=== PATIENT | male | born 1950 | race Two or more races ===

== ENCOUNTER 2018-12-02 18:15 | Inpatient (IN) | payer OTHER ==
--- NOTE | 2018-12-02 19:28 | PDOC ---
History of Present Illness - General Chief Complaint: Wound Stated Complaint: Abscess, infected rt arm Time Seen by Provider: 12/02/18 19:15 History Source: Patient Exam Limitations: No Limitations - History of Present Illness Initial Comments: 12/02/18 20:34 Anand Maravilla is a 68yM w PMHx DM HTN CHF presenting with R arm wound. 5d ago hit R antecubital fossa w ladder. Since then has worsening lump on R arm w purulence, warmth, swelling. Associated fever, diaphoresis, headache not relieved w tylenol/ibuprofen. Did not take any tylenol/ibuprofen today. Earlier today went to [facility], was given fluids, no antibiotics, left d/t dissatisfaction w care. Denies chest pain, SOB, nausea/vomiting, urinary/bowel movement changes. Past History - Past Medical History Allergies/Adverse Reactions: Allergies Allergy/AdvReac Type Severity Reaction Status Date / Time Penicillins Allergy Verified 12/02/18 18:23 shellfish derived Allergy Verified 12/02/18 18:23 tomato Allergy Verified 12/02/18 18:23 Home Medications: Ambulatory Orders Acetaminophen [Tylenol] 650 mg PO PRN PRN 12/02/18 Amlodipine Besylate [Norvasc -] 5 mg PO DAILY 12/02/18 Aspirin [ASA -] 81 mg PO DAILY 12/02/18 Furosemide [Lasix] 40 mg PO DAILY 12/02/18 Ibuprofen [Ibu] 800 mg PO PRN PRN 12/02/18 Insulin Glargine,Hum.rec.anlog [Lantus] 15 unit SQ HS 12/02/18 Metformin HCl [Glucophage] 500 mg PO BID 12/02/18 Sulfamethoxazole/Trimethoprim [Sulfamethoxazole-Tmp Ds Tablet] 1 each PO BID 09/13 Anemia: No Asthma: No Cancer: No Cardiac Disorders: Yes (CABG - 2 STENTS) CVA: No COPD: Yes (as per patient information) CHF: No Dementia: No Diabetes: Yes GI Disorders: No Disorders: No HTN: Yes (As per patient - need medication list, reports, etc. ) Liver Disease: No Seizures: No Thyroid Disease: No - Psycho Social/Smoking Cessation Hx Smoking History: Current every day smoker Number of Cigarettes Smoked Daily: 10 Information on smoking cessation initiated: Yes Hx Alcohol Use: No Drug/Substance Use Hx: No Review of Systems - Review of Systems Constitutional: Yes: Fever. No: Chills HEENTM: No: Eye Pain, Nose Pain, Throat Pain, Mouth Pain Respiratory: No: Cough, Shortness of Breath Cardiac (ROS): No: Chest Pain, Palpitations, Syncope ABD/GI: No: Abdominal Distended, Constipated, Diarrhea, Nausea, Vomiting : No: Burning, Dysuria, Discharge, Frequency, Flank Pain, Hematuria Musculoskeletal: No: Back Pain, Joint Pain, Joint Swelling, Muscle Pain Integumentary: No: Bruising, Dryness Neurological: Yes: Headache. No: Seizure, Tingling Psychiatric: No: Anxiety, Depression, Stressors Endocrine: Yes: Excessive Sweating. No: Flushing, Intolerance to Cold, Intolerance to Heat Hematologic/Lymphatic: No: Anemia, Blood Clots *Physical Exam - Vital Signs Last Vital Signs Temp Pulse Resp BP Pulse Ox 98 F 92 H 17 147/72 97 12/02/18 18:21 12/02/18 18:21 12/02/18 18:21 12/02/18 18:21 12/02/18 18:21 - Physical Exam General Appearance: Yes: Nourished, Appropriately Dressed, Moderate Distress HEENT: positive: EOMI, CHRISSY, Normal Voice, Hearing Grossly Normal. negative: Scleral Icterus (R), Scleral Icterus (L), Nasal Congestion, Rhinorrhea Respiratory/Chest: positive: Lungs Clear, Normal Breath Sounds. negative: Chest Tender, Respiratory Distress Cardiovascular: positive: Regular Rhythm, Regular Rate, S1, S2. negative: Edema , Murmur Extremity: positive: Other (5cm tender/erythematous/warm/fluctuant mass over R antecubital fossa w active yellow purulent discharge. Erythema spreads to wrist. Normal arm distal pulses/sensation/strength/ROM ) Neurologic: positive: Fully Oriented, Alert, Respond to painful stimul, Responsive. negative: Motor Strength 5/5, Numbness, Confused, Disoriented ED Treatment Course - LABORATORY CBC & Chemistry Diagram: 12/02/18 21:30 12/02/18 21:30 Medical Decision Making - Medical Decision Making 12/02/18 19:28 19:25 could not find pt in ED. Found pt at 20:00 CBC, CMP, POC glucose, blood/wound cx, coags 0.5L NS, tylenol, reglan for pain, vanc/clindamycin (penicillin allergy) for purulent abscess R forearm XR did not show fracture/dislocation/osteonecrosis BG 487 - given 6u insulin EKG shows NSR, RBBB, HR 78, QTc 433 --- Anand Maravilla is a 68yM w PMHx DM HTN CHF presenting with 5d worsening R arm wound concerning for abscess and cellulitis (5cm fluctuant mass w spreading erythema, edema, warmth). R forearm XR did not show fracture/dislocation/ osteonecrosis. Did not drain abscess d/t concern for tracking infection not completely cleared with I&D and pmhx DM. Given 0.5L NS, tylenol, reglan for pain , vanc/clindamycin for infection, 6u insulin for high BG Admitted to Dr Mccray med/surg for abscess needing IV antibiotics and drainage in setting of poorly controlled DM, large spreading infection Discharge - Discharge Information Problems reviewed: Yes Clinical Impression/Diagnosis: Abscess, Hyperglycemia Cellulitis Qualifiers: Site of cellulitis: extremity Site of cellulitis of extremity: lower extremity Laterality: right Qualified Code(s): L03.115 - Cellulitis of right lower limb Condition: Stable - Follow up/Referral - Patient Discharge Instructions - Post Discharge Activity
[2018-12-02] MEDS ORDERED: ACETAMINOPHEN 1000 MG/100 ML VIAL (NON FORMULARY) IVPB ONE (20:17)
[2018-12-02] MEDS ORDERED: METOCLOPRAMIDE HCL INJECTION 10 MG/2 ML VIAL IVPB ONE (20:18)
[2018-12-02] MEDS ORDERED: SODIUM CHLORIDE 0.9% 500 ML INFUS.BAG IV ONE (20:22)
[2018-12-02] MEDS ORDERED: ACETAMINOPHEN INJECTION 100 ML IVPB ONE (20:39)
[2018-12-02] MEDS ORDERED: METOCLOPRAMIDE HCL INJECTION 10 MG/2 ML VIAL ONE (20:39)
[2018-12-02] MEDS ORDERED: VANCOMYCIN 1 GM PREMIX - 1 GM/200 ML BAG IVPB ONE (21:15)
[2018-12-02] MEDS ORDERED: CLINDAMYCIN 600MG PREMIX IVPB 600 MG/50 ML BAG IVPB ONE ×2 (21:45→22:27)
--- NOTE | 2018-12-02 21:47 | PDOC ---
Documentation entered by Berkley Huff SCRIBE, acting as scribe for Oriana Brown MD. Oriana Brown MD: This documentation has been prepared by the Refugio patel Brenda, SCRIBE, under my direction and personally reviewed by me in its entirety. I confirm that the documentation accurately reflects all work, treatment, procedures, and medical decision making performed by me. Attending Attestation - Resident Resident Name: EvaMisael - ED Attending Attestation I have performed the following: I have examined & evaluated the patient, The case was reviewed & discussed with the resident, I agree w/resident's findings & plan, Exceptions are as noted - HPI HPI: 12/02/18 21:15 The patient is a 68 year old male, with a significant PMH of IDDM, HTN, CHF, who presents to the emergency department with a right forearm arm wound. He notes hitting his right interior elbow (antecubital fossa) with a ladder on Sunday (11/27/18). He notes that since then, he has had this worsening lump on right arm accompanied by purulence, warmth and edema, The patient also endorses fever, and a headache which is not alleviated with tyelenol. The patient denies chest pain, shortness of breath, headache and dizziness. Denies nausea, vomiting, diarrhea and constipation. Denies dysuria, frequency, urgency and hematuria. Allergies: NKA Past surgical history: CABG Social history: Polysubstance abuse (Heroin, cocaine) PCP: [facility] Patient - Physicial Exam PE: 12/02/18 21:16 GENERAL: Well-appearing, well-nourished. No apparent distress. HEENT: Normocephalic, atraumatic. PERRL, EOM intact. CARDIOVASCULAR: Normal S1, S2. Regular rate and rhythm. PULMONARY: Clear to auscultation bilaterally. ABDOMEN: Soft, non-distended, non-tender. EXTREMITIES: (+) 8 cm. by 6 cm. abscess on right anticubital fossa. (+) Old, well healed path davison (heroine) Sensation in tact in right arm. Normal ROM in all four extremities. No gross deformities. SKIN: Warm, dry. No rash NEUROLOGICAL: No focal neurological deficits. - Medical Decision Making 12/02/18 21:44 pt needs admission for IV antibiotics IMP ABSCESS/L forearm Cellulitis,IDDM
[2018-12-02 21:59] LABS: BASO % 0.5 % (0-2.0); EOS % 1.4 % (0-4.5); HEMATOCRIT 38.2 % (35.4-49); HEMOGLOBIN 12.6 GM/dL (11.7-16.9); LYMPH % 15.5 % (8-40); MCH 29.6 pg (25.7-33.7); MCHC 32.8 g/dl (32.0-35.9); MEAN CELL VOLUME 90.1 fl (80-96); MEAN PLT VOLUME 9.5 fl (7.5-11.1); MONO % 11.6 % (3.8-10.2); PLATELET COUNT 222 K/MM3 (134-434); RBC 4.24 M/mm3 (4.00-5.60); RDW 13.8 % (11.9-15.9); WHITE BLOOD COUNT 7.1 K/mm3 (4.0-10.0)
[2018-12-02 22:18] LABS: INR 0.91 (0.83-1.09); PROTHROMBIN TIME (PATIENT) 10.7 SEC (9.7-13.0)
[2018-12-02] MEDS ORDERED: VANCOMYCIN 1 GRAM (PRE-DOCKED) 1,000 MG/250 ML BAG IVPB ONE (22:26)
[2018-12-02 22:29] LABS: ALBUMIN 3.1 g/dl (3.4-5.0); BILIRUBIN,TOTAL 0.3 mg/dL (0.2-1); BLOOD UREA NITROGEN 7.6 mg/dL (7-18); CALCIUM 8.8 mg/dL (8.5-10.1); POTASSIUM 4.4 mmol/L (3.5-5.1); TOT PROT 6.8 g/dl (6.4-8.2)
[2018-12-03] MEDS ORDERED: INSULIN REGULAR HUMAN 100 UNITS/ML *VIAL IVPUSH ONE (01:06)
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
--- NOTE | 2018-12-03 01:49 | PN ---
Teaching Attending Note Name of Resident: Nilsa Hinton ATTENDING PHYSICIAN STATEMENT I saw and evaluated the patient. I reviewed the resident's note and discussed the case with the resident. I agree with the resident's findings and plan as documented. SUBJECTIVE: 68yM w uncontrolled DM, HTN, CHF presented with worsening R arm wound concerning for abscess and cellulitis ( fluctuant mass w spreading erythema, edema, warmth). R forearm XR did not show fracture/dislocation/osteonecrosis. Right forearm u/s did not show drainable fluid collection. OBJECTIVE: Last Vital Signs Temp Pulse Resp BP Pulse Ox 98 F 92 H 17 147/72 97 12/02/18 18:21 12/02/18 18:21 12/02/18 18:21 12/02/18 18:21 12/02/18 18:21 gen -nontoxic heent - atraumatic neck supple cv-s1+s2+rrr ext- right arm erthema, tenderness to palpation Abnormal Lab Results 12/02/18 12/02/18 12/02/18 21:30 21:30 21:30 Monocytes % 11.6 H PTT (Actin FS) 23.7 L Sodium 124 L Chloride 89 L Random Glucose 487 H* Alkaline Phosphatase 135 H Albumin 3.1 L imaging reviewed ASSESSMENT AND PLAN: #Right arm carbuncle vs cellulitis. No drainable fluid collection on right upper ext u/s. Severe penicillin allergy -med/surg -obtain u/s of right upper extremity to evaluate for drainable fluid collection -blood cultures x2 -esr, crp -vancomcyin, aztreonam, metronidazole -id consult #Severe uncontrolled hyperglycemia -novolog sliding scale -basal insulin -a1c -lipid panel -IV fluid hydration #CHF - unknown baseline EF -echo #Pseudohyponatremia - corrected an -130 mEq/L -serum osm -urine osm -tsh -fall precautions #DVT ppx -heparin sc
[2018-12-03] MEDS ORDERED: SODIUM CHLORIDE 1,000 ML IV SCH ×3 (06:00→14:15)
[2018-12-03 06:43] LABS: HEMATOCRIT 38.1 % (35.4-49); HEMOGLOBIN 12.8 GM/dL (11.7-16.9); MCH 29.8 pg (25.7-33.7); MCHC 33.6 g/dl (32.0-35.9); MEAN CELL VOLUME 88.9 fl (80-96); MEAN PLT VOLUME 9.1 fl (7.5-11.1); PLATELET COUNT 234 K/MM3 (134-434); RBC 4.28 M/mm3 (4.00-5.60); RDW 13.8 % (11.9-15.9); WHITE BLOOD COUNT 5.2 K/mm3 (4.0-10.0)
[2018-12-03 07:00] LABS: BLOOD UREA NITROGEN 9.1 mg/dL (7-18); CALCIUM 8.7 mg/dL (8.5-10.1); CREATININE 0.6 mg/dL (0.55-1.3); POTASSIUM 3.9 mmol/L (3.5-5.1)
[2018-12-03] MEDS ORDERED: INSULIN SLIDING SCALE (NOVOLOG) 1 VIAL SQ SCH (07:00)
[2018-12-03] MEDS ORDERED: AZTREONAM 1 GM VIAL (RESTRICTED TO ID) IVPB SCH ×3 (10:00→22:50)
[2018-12-03] MEDS ORDERED: AZTREONAM 1 GM in DEXTROSE 5%-WATER - 50 ML IVPB SCH ×2 (10:00→22:00)
[2018-12-03] MEDS ORDERED: ENOXAPARIN NA (PORCINE) 40 MG/0.4 ML DISP.SYRIN SQ SCH (10:00)
[2018-12-03] MEDS ORDERED: VANCOMYCIN 1 GRAM (PRE-DOCKED) 1,000 MG/250 ML BAG IVPB SCH ×2 (10:00→22:00)
[2018-12-03] MEDS ORDERED: ASPIRIN 81 MG CHEWABLE TABLETS PO SCH (10:00)
[2018-12-03] MEDS ORDERED: VANCOMYCIN 1 GM in D5W (PRE-DOCKED) 1,000 MG/250 ML IVPB SCH ×2 (10:00→22:00)
[2018-12-03] MEDS ORDERED: amLODIPine BESYLATE 5 MG TABLET (FP) PO SCH (10:00)
--- NOTE | 2018-12-03 11:59 | ECHO ---
Version: 1 Name: ESME PEDERSEN Exam: Adult Echocardiogram Study Date: 12/03/2018, 9:46 AM Age: 68 Years MMode/2D Measurements & Calculations IVSd: 0.87 cm LVIDs: 2.8 cm LVIDd: 4.0 cm LVPWd: 1.29 cm Ao root diam: 3.2 cm LA dimension: 3.7 cm Doppler Measurements & Calculations MV E max joshua: 55.8 cm/sec Med E/e': 11.7 MV A max joshua: 103.7 cm/sec Med Peak E' Joshua: 4.8 cm/sec MV E/A: 0.54 Lat E/e': 8.1 Lat Peak E' Joshua: 6.9 cm/sec Ao max P.7 mmHg LV V1 mean: 76.8 cm/sec Ao mean P.6 mmHg LV V1 mean P.6 mmHg Ao V2 max: 128.0 cm/sec AI P1/2t: 460.6 msec TR max joshua: 228.0 cm/sec TR max P.8 mmHg Procedure Study Quality: Technically suboptimal. Left Ventricle The left ventricular size, thickness and function are normal. Ejection Fraction = 65%. The transmitr al spectral Doppler flow pattern is suggestive of impaired LV relaxation. Right Ventricle The right ventricle is normal in size and function. Atria Normal left and right atrial size and function. Mitral Valve There is mild mitral annular calcification. There is mild mitral regurgitation. Tricuspid Valve The tricuspid valve is normal. There is mild tricuspid regurgitation. Aortic Valve There is mild aortic valve thickening. Trace to mild aortic regurgitation. Pulmonic Valve The pulmonic valve is not well visualized. Great Vessels The aortic root is normal size. Normal aortic arch, descending and ascending aorta. Pericardium/Pleura There is no pericardial effusion. Tech Comments NO WINDOW FOR SHORT AXIS PATIENT NON COOPERATIVE. Summary Statements The left ventricular size, thickness and function are normal Ejection Fraction = 65%. The right ventricle is normal in size and function. Normal left and right atrial size and function. The transmitral spectral Doppler flow pattern is suggestive of impaired LV relaxation. There is mild mitral annular calcification. There is mild mitral regurgitation. The tricuspid valve is normal. There is mild tricuspid regurgitation. There is mild aortic valve thickening. Trace to mild aortic regurgitation. The pulmonic valve is not well visualized. The aortic root is normal size. Normal aortic arch, descending and ascending aorta There is no pericardial effusion. Sami Greenberg 12/03/2018, 10:58 AM Ordering Physician: ANTON BRYSON Referring Physician: ANTON BRYSON Performed By: Darlyn Montilla
--- NOTE | 2018-12-03 12:05 | EKG ---
Test Reason : Blood Pressure : / mmHG Vent. Rate : 078 BPM Atrial Rate : 078 BPM P-R Int : 176 ms QRS Dur : 120 ms QT Int : 380 ms P-R-T Axes : 067 049 023 degrees QTc Int : 433 ms NORMAL SINUS RHYTHM RIGHT BUNDLE BRANCH BLOCK ABNORMAL ECG WHEN COMPARED WITH ECG OF 10-AUG-2016 09:47, NO SIGNIFICANT CHANGE WAS FOUND Confirmed by Mick Garcia ([id number]) on 12/03/2018 12:05:29 PM Referred By: Confirmed By:Mick Garcia
--- NOTE | 2018-12-03 12:54 | CONSULT ---
- Consultation REQUESTING PROVIDER: CONSULT REQUEST: We have been asked to surgically evaluate this patient for Right arm abscess. PCP:TJ Reed HISTORY OF PRESENT ILLNESS: The patient is a 68 yo male who presented to the ER for evaluation of his Right arm draining wound. He original hurt himself when a ladder fell onto him. Last Sunday he went to [facility] and was admitted. He cant recall if he was treated with any IV abx while in the hospital and denies taking any oral antibiotics at home. He has complaints of fever/chills. No CP/ SOB today. PMHx: diabetes, HTN, high cholesterol, CAD PSHx: s/p CABG-5 years ago Home Medications Medication Instructions Recorded Acetaminophen [Tylenol] 650 mg PO PRN PRN 12/02/18 Amlodipine Besylate [Norvasc -] 5 mg PO DAILY 12/02/18 Aspirin [ASA -] 81 mg PO DAILY 12/02/18 Furosemide [Lasix] 40 mg PO DAILY 12/02/18 Ibuprofen [Ibu] 800 mg PO PRN PRN 12/02/18 Insulin Glargine,Hum.rec.anlog 15 unit SQ HS 12/02/18 [Lantus] Metformin HCl [Glucophage] 500 mg PO BID 12/02/18 Sulfamethoxazole/Trimethoprim 1 each PO BID 12/02/18 [Sulfamethoxazole-Tmp Ds Tablet] Allergies Allergy/AdvReac Type Severity Reaction Status Date / Time Penicillins Allergy Verified 12/02/18 18:23 shellfish derived Allergy Verified 12/02/18 18:23 tomato Allergy Verified 12/02/18 18:23 REVIEW OF SYSTEMS: CONSTITUTIONAL: Present: fever, chills CARDIOVASCULAR: Absent: chest pain, syncope, palpitations RESPIRATORY: Absent: cough, shortness of breath GASTROINTESTINAL: Absent: abdominal pain, abdominal distension, nausea, vomiting MUSCULOSKELETAL: Present: back pain NEUROLOGIC: Absent: headache, focal weakness, paresthesias PHYSICAL EXAM: GENERAL: Awake, alert, and fully oriented, in no acute distress. LUNGS: Clear to auscultation bilat anteriorly. HEART: Regular rate and rhythm. ABDOMEN: Soft, nontender, not distended, no guarding, no rebound, no masses. MUSCULOSKELETAL: Normal ROM at all joints. No bony deformities or tenderness. No CVA tenderness. UPPER EXTREMITIES: 2+ pulses, warm, well-perfused. Right arm with 4x4 cm draining/erythematous/fluctuant area in lateral antecubital region. LOWER EXTREMITIES: 2+ DP pulses, warm, well-perfused. No calf tenderness. No peripheral edema. PSYCH: Cooperative. Good eye contact. Appropriate mood and affect. Vital Signs Temperature 98.2 F 12/03/18 12:12 Pulse Rate 82 12/03/18 12:12 Respiratory Rate 18 12/03/18 12:12 Blood Pressure 139/85 12/03/18 12:12 O2 Sat by Pulse Oximetry (%) 97 12/03/18 12:12 Lab Results WBC 5.2 K/mm3 (4.0-10.0) 12/03/18 06:11 RBC 4.28 M/mm3 (4.00-5.60) 12/03/18 06:11 Hgb 12.8 GM/dL (11.7-16.9) 12/03/18 06:11 Hct 38.1 % (35.4-49) 12/03/18 06:11 MCV 88.9 fl (80-96) 12/03/18 06:11 MCHC 33.6 g/dl (32.0-35.9) 12/03/18 06:11 RDW 13.8 % (11.9-15.9) 12/03/18 06:11 Plt Count 234 K/MM3 (134-434) 12/03/18 06:11 Sodium 136 mmol/L (136-145) 12/03/18 06:11 Potassium 3.9 mmol/L (3.5-5.1) 12/03/18 06:11 Chloride 100 mmol/L (98-107) 12/03/18 06:11 Carbon Dioxide 28 mmol/L (21-32) 12/03/18 06:11 Anion Gap 7 MMOL/L (8-16) L 12/03/18 06:11 BUN 9.1 mg/dL (7-18) 12/03/18 06:11 Creatinine 0.6 mg/dL (0.55-1.3) 12/03/18 06:11 Random Glucose 121 mg/dL (74-106) H 12/03/18 06:11 Calcium 8.7 mg/dL (8.5-10.1) 12/03/18 06:11 INR 0.91 (0.83-1.09) 12/02/18 21:30 Right arm ultrasound: no evidence of collection/SQ edema Problem List - Problems (1) Abscess Assessment/Plan: Right arm with no evidence of collection of ultrasound, clinically it areas fluctuant and is draining murky fluid. The area is tender to touch. D/w Dr. Crump and pt scheduled for I&D today. He is a diabetic with elevated glucose upon admission and the area is draining. IV abx as per ID Local wound care after I&D Code(s): L02.91 - CUTANEOUS ABSCESS, UNSPECIFIED
[2018-12-03] MEDS ORDERED: LIDOCAINE HCL 1%, 10 MG/ML (20ML VIAL) ONE (13:01)
[2018-12-03] MEDS ORDERED: BUPIVACAINE HCL/PF 0.5% (5 MG/ML) 30 ML VIAL IJ ONE (13:01)
[2018-12-03] MEDS ORDERED: PROPOFOL 20 ML ONE (13:28)
[2018-12-03] MEDS ORDERED: MIDAZOLAM HCL 2 MG/2 ML SINGLE DOSE VIAL ONE (13:28)
[2018-12-03] MEDS ORDERED: LIDOCAINE HCL 2% 100 MG/5 ML DISP.SYRIN ONE (13:33)
[2018-12-03] MEDS ORDERED: DEXAMETHASONE SOD PHOSPHATE 4 MG/1 ML VIAL ONE (13:47)
--- NOTE | 2018-12-03 14:02 | OP ---
Operative Note - Note: Operative Date: 12/03/18 Pre-Operative Diagnosis: abscess right arm Operation: I and D abscess right arm Post-Operative Diagnosis: Same as Pre-op Surgeon: Hitesh Crump Anesthesiologist/PARKING PATROLLER: Alvino Cline Anesthesia: General Estimated Blood Loss (mls): 10 Drains & Tubes with Location: 1/2" iodoform packing
--- NOTE | 2018-12-03 14:06 | HOSP ---
Physical Examination Vital Signs: Vital Signs Temperature 98.2 F 12/03/18 12:12 Pulse Rate 82 12/03/18 12:12 Respiratory Rate 18 12/03/18 12:12 Blood Pressure 139/85 12/03/18 12:12 O2 Sat by Pulse Oximetry (%) 97 12/03/18 12:12 Edema: RUE: 3+ Integumentary: Yes: Other (Distal to the R anticubital fossa there is a 5cm area of erythema that is tender, warm, fluctuant, with active yellow/clear purulent drainage. Erythema extending to wrist and above elbow) Labs: CBC, BMP 12/03/18 06:11 12/03/18 06:11 Hospitalist Encounter Assessment: Patient to the OR with Dr Crump for I&D of right antecubital fossa.
[2018-12-03] MEDS: KETOROLAC TROMETHAMINE 15 MG/ML VIAL IVPUSH ONE ×2 (14:30→15:51)
[2018-12-03] MEDS ORDERED: KETOROLAC TROMETHAMINE 30 MG/1 ML VIAL ONE (14:31)
[2018-12-03] MEDS ORDERED: INSULIN (NOVOLOG) ASPART 100 UNITS/ML 10ML VIAL ONE (14:59)
--- NOTE | 2018-12-03 15:26 | PN ---
Progress Note (short form) - Note Progress Note: ID consult dictated imp/reccd 68 yo man with DM, CAD, prior abscesses, prior ivdu (none for 10 years) admitted with abscess right forearm abscess right forearm penicillin allergy history of hep C DM CAD continue vanco/azactam/flagyl f/u cultures would offer repeat HIV testing Problem List - Problems (1) Abscess Code(s): L02.91 - CUTANEOUS ABSCESS, UNSPECIFIED (2) Diabetes mellitus type 1, uncontrolled, insulin dependent Code(s): E10.65 - TYPE 1 DIABETES MELLITUS WITH HYPERGLYCEMIA (3) Penicillin allergy Code(s): Z88.0 - ALLERGY STATUS TO PENICILLIN
[2018-12-03] MEDS ORDERED: ONDANSETRON 4 MG/2 ML VIAL IVPUSH PRN (16:28)
[2018-12-03] MEDS ORDERED: LACTATED RINGERS SOLUTION 1,000 ML IV SCH (16:30)
[2018-12-03] MEDS: VANCOMYCIN 1 GM in D5W (PRE-DOCKED) 1,000 MG/250 ML IVPB SCH (16:37)
[2018-12-03] MEDS: INSULIN SLIDING SCALE (NOVOLOG) 1 VIAL SQ SCH (16:38)
[2018-12-03 16:56] VITALS: BMI 32.2
[2018-12-03 17:37] LABS: COCAINE, UR NEGATIVE ng/ml (CUTOFF=300); METHADONE, UR NEGATIVE ng/ml (CUTOFF=300); PHENCYCLIDINE,URINE NEGATIVE ng/ml (CUTOFF=25); URINE AMPHETAMINES NEGATIVE ng/ml (CUTOFF=500); URINE BARBITURATES NEGATIVE ng/ml (CUTOFF=200)
[2018-12-03 17:44] LABS: OPIATES, URI POSITIVE ng/ml (CUTOFF=300); URINE BENZODIAZEPINES POSITIVE ng/ml (CUTOFF=200)
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
[2018-12-03] MEDS: oxyCODONE HCL 5 MG TABLET PO PRN (20:30)
[2018-12-03] MEDS ORDERED: PT OWN MED DRAWER 7, Y5N ONE (22:49)
[2018-12-03] MEDS: AZTREONAM 1 GM in DEXTROSE 5%-WATER 100 ML IVPB SCH (23:57)
[2018-12-04] MEDS: oxyCODONE HCL 5 MG TABLET PO PRN ×5 (02:31→21:11)
[2018-12-04] MEDS: VANCOMYCIN 1 GM in D5W (PRE-DOCKED) 1,000 MG/250 ML IVPB SCH ×2 (04:30→18:08)
[2018-12-04] MEDS ORDERED: ACETAMINOPHEN 325 MG TABLET (FP) PO PRN (05:06)
[2018-12-04] MEDS: INSULIN SLIDING SCALE (NOVOLOG) 1 VIAL SQ SCH ×3 (06:59→22:17)
--- NOTE | 2018-12-04 08:30 | PN ---
Progress Note (short form) - Note Progress Note: 68yo M PMH uncontrolled DM, HTN, CHF presented with worsening R arm wound concerning for abscess and cellulitis ( fluctuant mass w spreading erythema, edema, warmth). s/p right arm I&D under [facility]. Patient w/o complaints. Vital Signs Temperature 98.8 F 12/04/18 06:00 Pulse Rate 85 12/04/18 06:00 Respiratory Rate 20 12/04/18 06:00 Blood Pressure 140/80 12/04/18 06:00 O2 Sat by Pulse Oximetry (%) 100 12/03/18 21:00 sleeping in bed, arousable, NAD RRR CTAB -No anesthetic issues - Call with questions
[2018-12-04] MEDS ORDERED: DEXTROSE 5%-WATER 100 ML IVPB ONE ×2 (09:57→21:08)
[2018-12-04] MEDS ORDERED: AZTREONAM 1 GM VIAL (RESTRICTED TO ID) ONE ×2 (09:57→21:08)
[2018-12-04] MEDS: AZTREONAM 1 GM in DEXTROSE 5%-WATER 100 ML IVPB SCH ×2 (10:01→21:12)
[2018-12-04] MEDS: ASPIRIN 81 MG CHEWABLE TABLETS PO SCH (10:03)
[2018-12-04] MEDS: amLODIPine BESYLATE 5 MG TABLET (FP) PO SCH (10:03)
[2018-12-04] MEDS: ENOXAPARIN NA (PORCINE) 40 MG/0.4 ML DISP.SYRIN SQ SCH (10:04)
--- NOTE | 2018-12-04 11:57 | OP ---
DATE OF OPERATION: 12/03/2018 PREOPERATIVE DIAGNOSIS: Soft tissue abscess, right arm. POSTOPERATIVE DIAGNOSIS: Soft tissue abscess, right arm. PROCEDURE: Incision and drainage of soft tissue abscess of the right arm. SURGEON: Hitesh Crump MD ANESTHESIA: General. OPERATIVE FINDINGS: There was an abscess involving the soft tissue of the right upper extremity in the lateral aspect of the antecubital fossa. The rest of the findings were unremarkable. PROCEDURE: The patient was placed on the operating table in supine position and , after the induction of general anesthesia, the patient's right arm was prepped with Betadine and draped in sterile fashion. A timeout was taken and an incision was made with a scalpel over the area of fluctuance and purulent drainage obtained. This was sent for culture and sensitivity to the microbiology lab. The wound was copiously irrigated with a mixture of saline and peroxide, and hemostasis was secured with electrocautery. All pockets of infection were broken up using blunt dissection. Hemostasis was again verified and then the wound was packed with half-inch iodoform packing and dressed with sterile dressings and a 4-inch Miguel A and the procedure terminated, at this point the patient aroused from general anesthesia and transferred to the post-anesthesia care unit in stable condition, awake and alert. Estimated blood loss 10 mL. Replacement: Crystalloid. Drains: Half-inch iodoform packing. Specimen: Purulent drainage for culture and sensitivity to Microbiology. I, Hitesh Crump, was physically present in the operating room from the time the patient was placed on the operating table until he was transferred to the post-anesthesia care unit in [employer]. Hitesh Crump MD [id number] MTDD
--- NOTE | 2018-12-04 12:55 | PN ---
Progress Note (short form) - Note Progress Note: no complaints wants to go home Vital Signs Period Temp Pulse Resp BP Sys/Elizalde Pulse Ox Last 24 Hr 97.7 F-98.8 F 74-91 14-20 113-182/74-91 97-100 cor-rrr llungs clear abd soft,nt ext - +swelling with some erythema of the forearm +packing CBC, BMP 12/03/18 06:11 12/03/18 06:11 Microbiology 12/03/18 13:45 Arm - Right Forearm Gram Stain - Final 12/02/18 21:30 Arm - Right Forearm Wound Culture - Preliminary Pending Organism Pending Organism#2 12/02/18 21:30 Blood - Peripheral Venous Blood Culture - Preliminary NO GROWTH OBTAINED AFTER 24 HOURS, INCUBATION TO CONTINUE FOR 4 DAYS. 12/02/18 21:20 Blood - Peripheral Venous Blood Culture - Preliminary NO GROWTH OBTAINED AFTER 24 HOURS, INCUBATION TO CONTINUE FOR 4 DAYS. Active Medications Acetaminophen (Tylenol -) 650 mg PO Q6H PRN PRN Reason: PAIN LEVEL 1-5 Last Admin: 12/04/18 05:14 Dose: 650 mg Amlodipine Besylate (Norvasc -) 5 mg PO DAILY [facility] Last Admin: 12/04/18 10:03 Dose: 5 mg Aspirin (Asa -) 81 mg PO DAILY [facility] Last Admin: 12/04/18 10:03 Dose: 81 mg Enoxaparin Sodium (Lovenox -) 40 mg SQ DAILY [facility] Last Admin: 12/04/18 10:04 Dose: 40 mg Metronidazole (Flagyl 500mg Premixed Ivpb -) 500 mg in 100 mls @ 100 mls/hr IVPB Q8H-IV [facility] Last Admin: 12/04/18 10:04 Dose: 100 mls/hr Aztreonam 1 gm/ Dextrose 100 mls @ 200 mls/hr IVPB BID [facility] Last Admin: 12/04/18 10:01 Dose: 200 mls/hr Insulin Aspart (Novolog Vial Sliding Scale -) [facility]; Protocol Last Admin: 12/04/18 06:59 Dose: 8 units Oxycodone HCl (Roxicodone -) 5 mg PO Q6H PRN PRN Reason: PAIN LEVEL 1-5 Oxycodone HCl (Roxicodone -) 10 mg PO Q6H PRN PRN Reason: PAIN LEVEL 6-10 Last Admin: 12/04/18 07:37 Dose: 10 mg Vancomycin HCl (Vancomycin (Pre-Docked)) 1,000 mg IVPB Q12H [facility] Last Admin: 12/04/18 04:30 Dose: 1,000 mg a/p abscess right forearm-s/p drainage penicillin allergy history of hep C DM CAD continue vanco/azactam/flagyl f/u cultures would offer repeat HIV testing have asked him to stay until tomorrow continue iv antibiotics d/w hospitalist Problem List - Problems (1) Abscess Code(s): L02.91 - CUTANEOUS ABSCESS, UNSPECIFIED (2) Diabetes mellitus type 1, uncontrolled, insulin dependent Code(s): E10.65 - TYPE 1 DIABETES MELLITUS WITH HYPERGLYCEMIA (3) Penicillin allergy Code(s): Z88.0 - ALLERGY STATUS TO PENICILLIN
[2018-12-04] MEDS ORDERED: MORPHINE SULFATE 2 MG/ML VIAL IVPUSH ONE (15:58)
--- NOTE | 2018-12-04 16:30 | PN ---
Progress Note (short form) - Note Progress Note: POD #1 Right arm I&D, patient seen and examined at bedside. Patient states his pain controlled and he is tolerating his diet. He denies any CP, SOB, N/V, fever or chills. Vital Signs Period Temp Pulse Resp BP Sys/Elizalde Pulse Ox Last 24 Hr 97.7 F-985 F 76-99 16-20 113-153/55-91 97-100 CBC, BMP //19 06:11 12/03/ 06:11 PE: A&Ox3, NAD Unlabored resp on RA Right arm wound. clean, beefy red base with no foul odor or d/c, surrounding tissue indurrated with no evidence of tracking. patient could not comply with removing all packing despite having 2Mg of morphine in addition to his 10mg of oxycodone. majority of packing was removed, reminder of packing left in distal portion of wound, wound re-wrapped by nursing. Problem List - Problems (1) Abscess Assessment/Plan: POD#1 right arm I&D patient refusing dressing/packing change today. -daily dressing changes with packing - premedicate - elevate right arm -IV abx per ID -d/c planning with VNS Evaluation and plan discussed with Dr Crump Code(s): L02.91 - CUTANEOUS ABSCESS, UNSPECIFIED
[2018-12-04] MEDS ORDERED: morphine CARPU-JECT 2 MG/1 ML DISP.SYRIN IVPUSH ONE (16:49)
--- NOTE | 2018-12-04 16:53 | PN ---
Progress Note, Physician Chief Complaint: POD#1 from I&D History of Present Illness: 68 y/o/m with PMHx HTN, CHF, CAD s/p stents and CABG, multiple CVAs here for redness and swelling on his right upper extremity near his antecubital fossa. Eight days ago a ladder fell on the patients right arm He went to [facility] at that time and was admitted. He is unsure if he received any antibiotics while he was admitted there for 2 days. He was discharged and told to follow up.Pain persisted and he returned back to [facility] for further evaluation, was told he needed an I&D but wasn't happy with the care and came here. Patient was incarcerated for 2 years for drug related activity and was released in September this year. He has not had primary medical care since incarceration - Current Medication List Current Medications: Active Medications Acetaminophen (Tylenol -) 650 mg PO Q6H PRN PRN Reason: PAIN LEVEL 1-5 Last Admin: 12/04/18 05:14 Dose: 650 mg Amlodipine Besylate (Norvasc -) 5 mg PO DAILY [facility] Last Admin: 12/04/18 10:03 Dose: 5 mg Aspirin (Asa -) 81 mg PO DAILY [facility] Last Admin: 12/04/18 10:03 Dose: 81 mg Enoxaparin Sodium (Lovenox -) 40 mg SQ DAILY [facility] Last Admin: 12/04/18 10:04 Dose: 40 mg Metronidazole (Flagyl 500mg Premixed Ivpb -) 500 mg in 100 mls @ 100 mls/hr IVPB Q8H-IV [facility] Last Admin: 12/04/18 10:04 Dose: 100 mls/hr Aztreonam 1 gm/ Dextrose 100 mls @ 200 mls/hr IVPB BID [facility] Last Admin: 12/04/18 10:01 Dose: 200 mls/hr Insulin Aspart (Novolog Vial Sliding Scale -) [facility]; Protocol Last Admin: 12/04/18 06:59 Dose: 8 units Oxycodone HCl (Roxicodone -) 5 mg PO Q6H PRN PRN Reason: PAIN LEVEL 1-5 Oxycodone HCl (Roxicodone -) 10 mg PO Q6H PRN PRN Reason: PAIN LEVEL 6-10 Last Admin: 12/04/18 13:33 Dose: 10 mg Vancomycin HCl (Vancomycin (Pre-Docked)) 1,000 mg IVPB Q12H [facility] Last Admin: 12/04/18 04:30 Dose: 1,000 mg - Objective Vital Signs: Vital Signs Temperature 98.7 F 12/04/18 14:00 Pulse Rate 99 H 12/04/18 14:00 Respiratory Rate 20 12/04/18 14:00 Blood Pressure 127/66 12/04/18 14:00 O2 Sat by Pulse Oximetry (%) 100 12/04/18 09:00 Additional Findings/Remarks: GENERAL: Awake, alert, and fully oriented, in no acute distress. HEAD: NC/AT EYES: PERRL, EOMI, injected conjunctiva EARS, NOSE, THROAT: Ears normal, nares patent, oropharynx clear without exudates. Moist mucous membranes. NECK: Normal range of motion, supple without lymphadenopathy, JVD, or masses. LUNGS: Breath sounds equal, clear to auscultation bilaterally. No wheezes, and no crackles. No accessory muscle use. HEART: Regular rate and rhythm, normal S1 and S2 without murmur, rub or gallop. ABDOMEN: diffuse tenderness to palpation. Soft, nontender, not distended, normoactive bowel sounds, no guarding, no rebound, no masses. No hepatomegaly or splenomegaly. MUSCULOSKELETAL: Normal range of motion at all joints. No bony deformities or tenderness. No CVA tenderness. UPPER EXTREMITIES: 2+ pulses, warm, well-perfused. No cyanosis. No clubbing. No peripheral edema. LOWER EXTREMITIES: 2+ pulses, warm, well-perfused. No calf tenderness. No peripheral edema. NEUROLOGICAL: Cranial nerves II-XII intact. Normal speech. Normal gait. PSYCHIATRIC: Cooperative. Good eye contact. Appropriate mood and affect. SKIN: s/p I&D with surgical dressing intact with seros-sang drainage Labs: CBC, BMP 12/03/18 06:11 12/03/18 06:11 INR, PTT INR 0.91 (0.83-1.09) 12/02/18 21:30 Problem List - Problems (1) HTN (hypertension) Assessment/Plan: c/w amlodopine Code(s): I10 - ESSENTIAL (PRIMARY) HYPERTENSION (2) CHF (congestive heart failure) Assessment/Plan: c/w lasix maintain euvolemia strict I&Os daily weights Code(s): I50.9 - HEART FAILURE, UNSPECIFIED (3) CVA (cerebral vascular accident) Assessment/Plan: no residual effects c/w asa Code(s): I63.9 - CEREBRAL INFARCTION, UNSPECIFIED (4) Prophylactic measure Assessment/Plan: FEN no IVF needed monitor electrolytes low fat chol diet DVT heparin sq asa Dispo maintain as in patient until cx are back full code discharge planning Code(s): Z29.9 - ENCOUNTER FOR PROPHYLACTIC MEASURES, UNSPECIFIED (5) Abscess Assessment/Plan: s/p I&D dressing change, packing left in c/w abx-venco/flagyl, aztreonam appreciate ID consultation with Dr Rowland Code(s): L02.91 - CUTANEOUS ABSCESS, UNSPECIFIED (6) S/P CABG (coronary artery bypass graft) Assessment/Plan: c/w asa Code(s): Z95.1 - PRESENCE OF AORTOCORONARY BYPASS GRAFT Visit type - Emergency Visit Emergency Visit: Yes ED Registration Date: 12/02/18 Care time: The patient presented to the Emergency Department on the above date and was hospitalized for further evaluation of their emergent condition. - New Patient This patient is new to me today: No - Critical Care Critical Care patient: No - Discharge Referral Referred to [facility] Med P.C.: No
[2018-12-04] MEDS ORDERED: MORPHINE SULFATE 2 MG/ML VIAL ONE (17:00)
[2018-12-04] MEDS: FUROSEMIDE 40 MG TABLET (FP) PO SCH (18:08)
[2018-12-05] MEDS: oxyCODONE HCL 5 MG TABLET PO PRN ×4 (03:00→21:21)
[2018-12-05] MEDS: VANCOMYCIN 1 GM in D5W (PRE-DOCKED) 1,000 MG/250 ML IVPB SCH (04:22)
[2018-12-05] MEDS ORDERED: INSULIN (NOVOLOG) ASPART 100 UNITS/ML 10ML VIAL ONE (06:20)
[2018-12-05] MEDS: INSULIN SLIDING SCALE (NOVOLOG) 1 VIAL SQ SCH ×4 (06:22→21:21)
[2018-12-05 08:06] LABS: BASO % 0.4 % (0-2.0); EOS % 1.3 % (0-4.5); HEMATOCRIT 43.1 % (35.4-49); HEMOGLOBIN 14.8 GM/dL (11.7-16.9); LYMPH % 28.9 % (8-40); MCH 30.3 pg (25.7-33.7); MCHC 34.2 g/dl (32.0-35.9); MEAN CELL VOLUME 88.4 fl (80-96); MEAN PLT VOLUME 8.8 fl (7.5-11.1); MONO % 9.7 % (3.8-10.2); NEUT % 59.7 % (42.8-82.8); PLATELET COUNT 302 K/MM3 (134-434); RBC 4.88 M/mm3 (4.00-5.60); RDW 13.9 % (11.9-15.9); WHITE BLOOD COUNT 6.7 K/mm3 (4.0-10.0)
[2018-12-05 08:16] LABS: BILIRUBIN,TOTAL 0.4 mg/dL (0.2-1); CALCIUM 9.2 mg/dL (8.5-10.1); CREATININE 0.8 mg/dL (0.55-1.3); MAGNESIUM 1.9 mg/dL (1.8-2.4); POTASSIUM 3.8 mmol/L (3.5-5.1); TOT PROT 7.4 g/dl (6.4-8.2)
[2018-12-05] MEDS ORDERED: INSULIN (LEVEMIR) 100 UNITS/ML UNITS SQ ONE (08:48)
[2018-12-05] MEDS ORDERED: AZTREONAM 1 GM VIAL (RESTRICTED TO ID) ONE (09:36)
[2018-12-05] MEDS ORDERED: DEXTROSE 5%-WATER 100 ML IVPB ONE (09:36)
[2018-12-05] MEDS ORDERED: PT OWN MED DRAWER 7, Y5N ONE (09:37)
[2018-12-05] MEDS: FUROSEMIDE 40 MG TABLET (FP) PO SCH (09:41)
[2018-12-05] MEDS: amLODIPine BESYLATE 5 MG TABLET (FP) PO SCH (09:41)
[2018-12-05] MEDS: ASPIRIN 81 MG CHEWABLE TABLETS PO SCH (09:41)
[2018-12-05] MEDS: ENOXAPARIN NA (PORCINE) 40 MG/0.4 ML DISP.SYRIN SQ SCH (09:41)
[2018-12-05] MEDS: AZTREONAM 1 GM in DEXTROSE 5%-WATER 100 ML IVPB SCH (12:11)
--- NOTE | 2018-12-05 12:22 | PN ---
Physical Exam: SUBJECTIVE: Patient seen and examined OBJECTIVE: Patient is a 68 year old male with a past medical history of hypertension, CHF, CAD s/p stents and CABG, multiple CVAs here for redness and swelling on his right upper extremity near his antecubital fossa. Patient states that a ladder fell on his right arm, he went to [facility] and signed out. He comes to [facility] ED on 12/02/18 and is now s/p I&D. He was also noted to be hyponatremic today. Of note, patient was recently incarcerated for 2 years for drug related activity and was released in September this year. He has not had primary medical care since incarceration, and therefore will need PCP referral on d/c. Vital Signs Period Temp Pulse Resp BP Sys/Elizalde Pulse Ox Last 24 Hr 98.4 F-98.7 F 90-99 20-20 127-166/66-95 GENERAL: Awake, alert, and fully oriented, in no acute distress. HEAD: NC/AT EYES: PERRL, EOMI, injected conjunctiva EARS, NOSE, THROAT: Ears normal, nares patent, oropharynx clear without exudates. Moist mucous membranes. NECK: Normal range of motion, supple without lymphadenopathy, JVD, or masses. LUNGS: Breath sounds equal, clear to auscultation bilaterally. No wheezes, and no crackles. No accessory muscle use. HEART: Regular rate and rhythm, normal S1 and S2 without murmur, rub or gallop. ABDOMEN: diffuse tenderness to palpation. Soft, nontender, not distended, normoactive bowel sounds, no guarding, no rebound, no masses. No hepatomegaly or splenomegaly. SKIN: s/p I&D with surgical dressing intact with seros-sang drainage Laboratory Results - last 24 hr 12/04/18 12/04/18 12/05/18 18:17 21:59 06:18 WBC RBC Hgb Hct MCV MCH MCHC RDW Plt Count MPV Absolute Neuts (auto) Neutrophils % Lymphocytes % Monocytes % Eosinophils % Basophils % Nucleated RBC % Sodium Potassium Chloride Carbon Dioxide Anion Gap BUN Creatinine Est GFR (CKD-EPI)AfAm Est GFR (CKD-EPI)NonAf POC Glucometer 396 453 305 Random Glucose Calcium Magnesium Total Bilirubin AST ALT Alkaline Phosphatase Total Protein Albumin 12/05/18 12/05/18 12/05/18 07:20 07:20 11:29 WBC 6.7 RBC 4.88 Hgb 14.8 Hct 43.1 MCV 88.4 MCH 30.3 MCHC 34.2 RDW 13.9 Plt Count 302 D MPV 8.8 Absolute Neuts (auto) 4.0 Neutrophils % 59.7 Lymphocytes % 28.9 D Monocytes % 9.7 Eosinophils % 1.3 Basophils % 0.4 Nucleated RBC % 0 Sodium 130 L Potassium 3.8 Chloride 98 Carbon Dioxide 25 Anion Gap 7 L BUN 11.0 Creatinine 0.8 Est GFR (CKD-EPI)AfAm 105.64 Est GFR (CKD-EPI)NonAf 91.15 POC Glucometer 180 Random Glucose 256 H Calcium 9.2 Magnesium 1.9 Total Bilirubin 0.4 AST 16 ALT 22 Alkaline Phosphatase 136 H Total Protein 7.4 Albumin 3.0 L Active Medications Generic Name Dose Route Start Last Admin Trade Name Freq PRN Reason Stop Dose Admin Acetaminophen 650 mg 12/04/18 05:06 12/04/18 05:14 Tylenol - PO 650 mg Q6H PRN Administration PAIN LEVEL 1-5 Amlodipine Besylate 5 mg 12/04/18 10:00 12/05/18 09:41 Norvasc - PO 5 mg DAILY [facility] Administration Aspirin 81 mg 12/04/18 10:00 12/05/18 09:41 Asa - PO 81 mg DAILY [facility] Administration Enoxaparin Sodium 40 mg 12/04/18 10:00 12/05/18 09:41 Lovenox - SQ 40 mg DAILY [facility] Administration Furosemide 40 mg 12/04/18 17:15 12/05/18 09:41 Lasix - PO 40 mg DAILY [facility] Administration Metronidazole 500 mg in 100 mls @ 100 mls/hr 12/03/18 18:00 12/05/18 12:11 Flagyl 500mg Premixed Ivpb - IVPB Not Given Q8H-IV [facility] Aztreonam 1 gm/ Dextrose 100 mls @ 200 mls/hr 12/03/18 22:00 12/05/18 12:11 IVPB Not Given BID [facility] Insulin Aspart 1 vial 12/05/18 08:49 12/05/18 11:33 Novolog Vial Sliding Scale - SQ 4 units ACHS [facility] Administration Protocol Insulin Detemir 10 units 12/05/18 22:00 Levemir Vial SQ BID@0700,2200 [facility] Oxycodone HCl 5 mg 12/03/18 15:27 12/04/18 21:11 Roxicodone - PO 5 mg Q6H PRN Administration PAIN LEVEL 1-5 Oxycodone HCl 10 mg 12/03/18 15:28 12/05/18 09:11 Roxicodone - PO 10 mg Q6H PRN Administration PAIN LEVEL 6-10 Vancomycin HCl 1,000 mg 12/03/18 16:00 12/05/18 04:22 Vancomycin (Pre-Docked) IVPB 1,000 mg Q12H [facility] Administration ASSESSMENT/PLAN: Problem List - Problems (1) Hyponatremia Assessment/Plan: serum na @ 129 will continue to trend patient is asymptomatic monitor for any symptoms. labs in a.m Code(s): E87.1 - HYPO-OSMOLALITY AND HYPONATREMIA (2) Abscess Assessment/Plan: s/p I&D POST op day #2. Change dressings daily per surgery. (irrigate wound with NS and cover with 4x4 and kerlix). antibiotics switched to PO clindamycin per ID (allergy to pcn). Patient to f/u in 7-[address] Crump. Code(s): L02.91 - CUTANEOUS ABSCESS, UNSPECIFIED (3) CHF (congestive heart failure) Assessment/Plan: c/w lasix maintain euvolemia strict I&Os daily weights Code(s): I50.9 - HEART FAILURE, UNSPECIFIED (4) Cellulitis Assessment/Plan: s/p I&D Code(s): L03.90 - CELLULITIS, UNSPECIFIED Qualifiers: Site of cellulitis: extremity Site of cellulitis of extremity: lower extremity Laterality: right Qualified Code(s): L03.115 - Cellulitis of right lower limb (5) HTN (hypertension) Assessment/Plan: on norvasc, bp stable. Code(s): I10 - ESSENTIAL (PRIMARY) HYPERTENSION (6) Hyperglycemia Assessment/Plan: on novolog ss, bgms elevated. monitor. Code(s): R73.9 - HYPERGLYCEMIA, UNSPECIFIED (7) Prophylactic measure Code(s): Z29.9 - ENCOUNTER FOR PROPHYLACTIC MEASURES, UNSPECIFIED Visit type - Emergency Visit Emergency Visit: Yes ED Registration Date: 12/02/18 Care time: The patient presented to the Emergency Department on the above date and was hospitalized for further evaluation of their emergent condition. - New Patient This patient is new to me today: Yes Date on this admission: 12/05/18 - Critical Care Critical Care patient: No - Discharge Referral Referred to [facility] Med P.C.: No
--- NOTE | 2018-12-05 13:30 | PN ---
Progress Note (short form) - Note Progress Note: POD 2, s/p I and D abscess right arm Pt seen and examined. Reports pain is stable. No issues overnight. Has been oob to restroom. Voiding and tolerating diet. Denies cp/sob, n/v/d. Vital Signs Temp 98.1 F 12/05/18 12:00 Pulse 89 12/05/18 12:00 Resp 20 12/05/18 12:00 BP 152/95 12/05/18 12:00 Pulse Ox 100 12/04/18 09:00 Intake & Output 12/04/18 12/05/18 12/05/18 23:59 11:59 23:59 Intake Total 1300 Output Total 950 Balance 350 Intake: IV 400 Normal Saline - 1,000 ml 400 @ 42 mls/hr IV ASDIR [facility] Rx#:[id number] IVPB 300 Oral 600 Output: Urine 950 Void 950 Other: Voiding Method Urinal # Unmeasured Voids Void 1 1 Bowel Movement No # Bowel Movements 1 Weight Measurement Method Standing Scale CBC, BMP 12/05/18 07:20 12/05/18 07:20 Gen: awake, alert, nad Resp: unlabored on RA UE: RUE dressing c/d/i, trace edema. A/P: 68 y/o M w/ PMHx HTN, CHF, CAD s/p stents and CABG, multiple CVAs admitted 12/02 for redness and swelling on his right upper extremity now POD 2, s/p I and D abscess right arm. Afebrile, vss -Change dressings daily, order in (irrigate wound with NS and cover with 4x4 and kerlix) -Abx per primary team -VNS for home dressing changes if family is unable to assist -Pt should f/u in the office in 7-10 days d/w attending Dr Crump
[2018-12-05 16:59] LABS: BILIRUBIN,TOTAL 0.3 mg/dL (0.2-1); BLOOD UREA NITROGEN 10.8 mg/dL (7-18); CALCIUM 9.1 mg/dL (8.5-10.1); CREATININE 0.7 mg/dL (0.55-1.3); POTASSIUM 3.6 mmol/L (3.5-5.1); TOT PROT 7.2 g/dl (6.4-8.2)
[2018-12-05] MEDS: CLINDAMYCIN HCL 150 MG CAPSULE (FP) PO SCH ×2 (17:14→23:20)
[2018-12-05] MEDS: INSULIN (LEVEMIR) 100 UNITS/ML UNITS SQ SCH (21:22)
[2018-12-06] MEDS: oxyCODONE HCL 5 MG TABLET PO PRN ×3 (00:58→09:41)
[2018-12-06] MEDS: CLINDAMYCIN HCL 150 MG CAPSULE (FP) PO SCH (06:10)
[2018-12-06] MEDS: INSULIN SLIDING SCALE (NOVOLOG) 1 VIAL SQ SCH (06:10)
[2018-12-06] MEDS: INSULIN (LEVEMIR) 100 UNITS/ML UNITS SQ SCH (06:10)
[2018-12-06] MEDS ORDERED: INSULIN (NOVOLOG) ASPART 100 UNITS/ML 10ML VIAL ONE (06:48)
[2018-12-06] MEDS ORDERED: INSULIN (LEVEMIR) 100 UNITS/ML UNITS SQ ONE (06:48)
[2018-12-06 08:15] LABS: BASO % 0.6 % (0-2.0); EOS % 1.7 % (0-4.5); HEMATOCRIT 47.6 % (35.4-49); HEMOGLOBIN 16.3 GM/dL (11.7-16.9); LYMPH % 31.8 % (8-40); MCH 30.4 pg (25.7-33.7); MCHC 34.3 g/dl (32.0-35.9); MEAN CELL VOLUME 88.7 fl (80-96); MEAN PLT VOLUME 8.8 fl (7.5-11.1); NEUT % 55.9 % (42.8-82.8); PLATELET COUNT 313 K/MM3 (134-434); RBC 5.37 M/mm3 (4.00-5.60); RDW 14.1 % (11.9-15.9)
[2018-12-06 08:40] LABS: BILIRUBIN,TOTAL 0.3 mg/dL (0.2-1); BLOOD UREA NITROGEN 11.4 mg/dL (7-18); CALCIUM 9.4 mg/dL (8.5-10.1); CREATININE 0.7 mg/dL (0.55-1.3); POTASSIUM 3.5 mmol/L (3.5-5.1); TOT PROT 7.3 g/dl (6.4-8.2)
[2018-12-06] MEDS ORDERED: ACETAMINOPHEN 325 MG TABLET (FP) PO PRN (08:57)
[2018-12-06] MEDS ORDERED: IBUPROFEN 800 MG PO PRN (08:57)
[2018-12-06] MEDS ORDERED: SODIUM CHLORIDE 1 GM TABLET PO ONE (09:00)
--- NOTE | 2018-12-06 09:28 | DS ---
Physical Exam: SUBJECTIVE: Patient seen and examined at the bedside. wants to go home and follow up as an outpatient. he agrees to see surgery outpatient. will also have services from S for his right arm wound. patient willing to go to [facility] clinic until he can secure an appointment with a PCP. Discussed importance of repeat lab draw with him and his daughter to monitor serum NA. OBJECTIVE: Patient is a 68 year old male with a past medical history of hypertension, CHF, CAD s/p stents and CABG, multiple CVAs here for redness and swelling on his right upper extremity near his antecubital fossa. Patient states that a ladder fell on his right arm, he went to [facility] and signed out. He comes to [facility] ED on 12/02/18 and is now s/p I&D. Of note, patient was recently incarcerated for 2 years for drug related activity and was released in September this year. He has not had primary medical care since incarceration, and therefore will need PCP referral on d/c. He was been referred to [facility] clinic. His daughter is attempting to make a PCP appointment for him with a new PCP that accepts his insurance. Vital Signs Period Temp Pulse Resp BP Sys/Elizalde Pulse Ox Last 24 Hr 97.6 F-98.7 F 89-114 20-22 129-153/78-98 100 PHYSICAL EXAM GENERAL: Awake, alert, and fully oriented, in no acute distress. HEAD: NC/AT EYES: PERRL, EOMI, injected conjunctiva EARS, NOSE, THROAT: Ears normal, nares patent, oropharynx clear without exudates. Moist mucous membranes. NECK: Normal range of motion, supple without lymphadenopathy, JVD, or masses. LUNGS: Breath sounds equal, clear to auscultation bilaterally. No wheezes, and no crackles. No accessory muscle use. HEART: Regular rate and rhythm, normal S1 and S2 without murmur, rub or gallop. ABDOMEN: diffuse tenderness to palpation. Soft, nontender, not distended, normoactive bowel sounds, no guarding, no rebound, no masses. No hepatomegaly or splenomegaly. SKIN: s/p I&D with surgical dressing intact with seros-sang drainage LABS Laboratory Results - last 24 hr 12/05/18 12/05/18 12/05/18 11:29 16:00 16:33 WBC RBC Hgb Hct MCV MCH MCHC RDW Plt Count MPV Absolute Neuts (auto) Neutrophils % Lymphocytes % Monocytes % Eosinophils % Basophils % Nucleated RBC % Sodium 129 L Potassium 3.6 Chloride 96 L Carbon Dioxide 24 Anion Gap 9 BUN 10.8 Creatinine 0.7 Est GFR (CKD-EPI)AfAm 111.60 Est GFR (CKD-EPI)NonAf 96.29 POC Glucometer 180 302 Random Glucose 234 H Calcium 9.1 Total Bilirubin 0.3 AST 23 ALT 22 Alkaline Phosphatase 131 H Total Protein 7.2 Albumin 3.0 L 12/05/18 12/06/18 12/06/18 20:24 05:40 07:30 WBC 8.0 RBC 5.37 Hgb 16.3 Hct 47.6 MCV 88.7 MCH 30.4 MCHC 34.3 RDW 14.1 Plt Count 313 MPV 8.8 Absolute Neuts (auto) 4.5 Neutrophils % 55.9 Lymphocytes % 31.8 Monocytes % 10.0 Eosinophils % 1.7 Basophils % 0.6 Nucleated RBC % 0 Sodium Potassium Chloride Carbon Dioxide Anion Gap BUN Creatinine Est GFR (CKD-EPI)AfAm Est GFR (CKD-EPI)NonAf POC Glucometer 371 191 Random Glucose Calcium Total Bilirubin AST ALT Alkaline Phosphatase Total Protein Albumin 12/06/18 07:30 WBC RBC Hgb Hct MCV MCH MCHC RDW Plt Count MPV Absolute Neuts (auto) Neutrophils % Lymphocytes % Monocytes % Eosinophils % Basophils % Nucleated RBC % Sodium 132 L Potassium 3.5 Chloride 97 L Carbon Dioxide 26 Anion Gap 9 BUN 11.4 Creatinine 0.7 Est GFR (CKD-EPI)AfAm 111.60 Est GFR (CKD-EPI)NonAf 96.29 POC Glucometer Random Glucose 159 H Calcium 9.4 Total Bilirubin 0.3 AST 31 ALT 24 Alkaline Phosphatase 132 H Total Protein 7.3 Albumin 3.0 L HOSPITAL COURSE: Date of Admission:12/02/18 Date of Discharge: 12/06/18 Minutes to complete discharge: 45 Discharge Summary Problems reviewed: Yes Reason For Visit: Abscess Current Active Problems Abscess (Acute) CHF (congestive heart failure) (Acute) CVA (cerebral vascular accident) (Acute) Cellulitis (Acute) HTN (hypertension) (Acute) Hyperglycemia (Acute) Hyponatremia (Acute) Penicillin allergy (Acute) Prophylactic measure (Acute) Condition: Stable - Instructions Diet, Activity, Other Instructions: Mr Maravilla: You were admitted for a right arm infection. You had an incision and drainage from this site and we will be sending you home with antibiotics for 7 more days. Antibiotics Clindamycin 300mg (two tablets of 150mg) take by mouth every 6 hours for 7 days total Blood work: Please have your blood work repeated. We are aware that you do not have a primary care doctor and we will be referring you to the [facility] Clinic. It is a clinic that can provide you various services for low cost. Right arm wound: -Change dressings daily, (irrigate wound with NS and cover with 4x4 and kerlix) -clindamycin 300mg (two tablets of 150mg each) by mouth every 6 hours for 7 days total, start taking this tonight. -Please follow up in the office in 7-10 days - Dr. Crump. So that your wound can be checked. His information is enclosed. [address] [address] [phone] Thank you for allowing us to care fo you. Referrals: Hitesh Crump MD [Staff Physician] - Disposition: HOME - Home Medications Comprehensive Discharge Medication List: Ambulatory Orders Acetaminophen [Tylenol] 650 mg PO PRN PRN 12/02/18 Amlodipine Besylate [Norvasc -] 5 mg PO DAILY 12/02/18 Aspirin [ASA -] 81 mg PO DAILY 12/02/18 Furosemide [Lasix] 40 mg PO DAILY 12/02/18 Ibuprofen [Ibu] 800 mg PO PRN PRN 12/02/18 Insulin Glargine,Hum.rec.anlog [Lantus] 15 unit SQ HS 12/02/18 Metformin HCl [Glucophage] 500 mg PO BIDAC 12/02/18 Clindamycin [Cleocin -] 300 mg PO Q6HPO #56 capsule 12/06/18 Ketorolac Tromethamine [Toradol] 10 mg PO Q6H #30 tablet 12/06/18 Problem List - Problems (1) Hyponatremia Assessment/Plan: serum na @ 132, improving He is refusing further IV placement patient is asymptomatic and agrees to get his lab work repeated as an outpatient. Referred to [facility] clinic and salt tab given prior to d/c. Code(s): E87.1 - HYPO-OSMOLALITY AND HYPONATREMIA (2) Abscess Assessment/Plan: s/p I&D POST op day #3. Change dressings daily per surgery. (irrigate wound with NS and cover with 4x4 and kerlix). antibiotics switched to PO clindamycin per ID (allergy to pcn). Patient to f/u in 7-[address] Crump. VNS to tend to wound as outpt. Code(s): L02.91 - CUTANEOUS ABSCESS, UNSPECIFIED (3) CHF (congestive heart failure) Assessment/Plan: c/w lasix Code(s): I50.9 - HEART FAILURE, UNSPECIFIED (4) Cellulitis Assessment/Plan: s/p I&D Code(s): L03.90 - CELLULITIS, UNSPECIFIED Qualifiers: Site of cellulitis: extremity Site of cellulitis of extremity: lower extremity Laterality: right Qualified Code(s): L03.115 - Cellulitis of right lower limb (5) HTN (hypertension) Assessment/Plan: on norvasc, bp stable. Code(s): I10 - ESSENTIAL (PRIMARY) HYPERTENSION (6) Hyperglycemia Assessment/Plan: on novolog ss, bgms improved. monitor. patient has home lantus. unsure of compliance with glucose monitoring and medications. hmga1c 13.1. discussed importance of follow up and monitoring blood sugars. Code(s): R73.9 - HYPERGLYCEMIA, UNSPECIFIED (7) Prophylactic measure Assessment/Plan: discharge home Code(s): Z29.9 - ENCOUNTER FOR PROPHYLACTIC MEASURES, UNSPECIFIED This patient is new to me today: No Emergency Visit: Yes ED Registration Date: 12/02/18 Care time: The patient presented to the Emergency Department on the above date and was hospitalized for further evaluation of their emergent condition. Critical Care patient: No - Discharge Referral Referred to [facility] No
[2018-12-06] MEDS: FUROSEMIDE 40 MG TABLET (FP) PO SCH (09:35)
[2018-12-06] MEDS: amLODIPine BESYLATE 5 MG TABLET (FP) PO SCH (09:35)
[2018-12-06] MEDS: ENOXAPARIN NA (PORCINE) 40 MG/0.4 ML DISP.SYRIN SQ SCH (09:35)
[2018-12-06] MEDS: ASPIRIN 81 MG CHEWABLE TABLETS PO SCH (09:35)
[2018-12-06 11:58] VITALS: BP 113/70; PULSE 105; TEMP 98.5
[2018-12-06] MEDS ORDERED: metFORMIN HCL 500 MG TABLET (FP) PO SCH (16:30)
[2018-12-06] MEDS ORDERED: PATIENT'S OWN MEDICATION (NON-FORMULARY) (Insulin Glargine,Hum.Rec.Anlog [Lantus] 15 UNIT) SQ SCH (22:00)
== END 2018-12-06 12:27 | disposition home or self-care (01) | DRG 580 ==
LOC: JER 18:15 → JERBED 22:45 → J8W 12-03 15:36
PROVIDERS: ADMIT Internal Medicine; ATTEND Nurse Practitioner Family
PROC: 0X3 Anatomical Regions, Upper Extremities, Control (ICD-10-PCS; 2018-12-03)
PROC: 0X9B0ZX Drainage of Right Elbow Region, Open Approach, Diagnostic (ICD-10-PCS; principal; 2018-12-03 14:00)
DX: L02.413 Cutaneous abscess of right upper limb (principal); E87.1 Hypo-osmolality and hyponatremia; L03.115 Cellulitis of right lower limb; I45.10 Unspecified right bundle-branch block; E11.65 Type 2 diabetes mellitus with hyperglycemia; E78.5 Hyperlipidemia, unspecified; I11.0 Hypertensive heart disease with heart failure; Z86.73 Personal history of transient ischemic attack (TIA), and cerebral infarction without residual deficits; Z95.5 Presence of coronary angioplasty implant and graft; Z88.0 Allergy status to penicillin; Z95.1 Presence of aortocoronary bypass graft
CPT/HCPCS: 36415; 71045-TC-FY; 73090-TC-RT-FY; 76882-TC-RT-FY; 80048; 80053; 80307; 82962; 83036; 83735; 83930; 83935; 85025; 85027; 85610; 85730; 87040; 87070; 87186; 87205; 93005; 93010; 93306-TC; 94760; 99284-25; J0131; J7030

== ENCOUNTER 2018-12-13 20:31 | Inpatient (IN) | payer OTHER ==
--- NOTE | 2018-12-13 21:19 | PDOC ---
History of Present Illness - General Chief Complaint: Substance Abuse Stated Complaint: SUBSTANCE ABUSE Time Seen by Provider: 12/13/18 21:18 History Source: Patient, Family Exam Limitations: No Limitations - History of Present Illness Initial Comments: 12/13/18 21:50 HPI: Pt is a 68yM w PMHx DM HTN CHF presenting with AMS for 2 hours. Patient was recently admitted for treatment of proximal R forearm abscess, given outpatient ABX and followup. Patient is now following with Dr. Alonso and is in the process of setting up specialist care. Since his discharge he has complained of various aches and pains, most recently of abdominal pain. He has become increasingly thirsty over the past couple days and has had multiple blood sugar readings in the 300s. Daughter reports that he has complained of the chills and subjective fevers for several days and has had a change in his arm wound with "white stuff" appearing on top (description c/w granulation tissue) - denies redness, discharge, but reports increasing pain and ? antibiotic compliance. Diarrhea / abdominal distention for 3 weeks. No constipation. Of note, EMS found patient somnolent and snoring, administered naloxone at which point patient woke up. Daughter is unaware of any recent heorin use, reporting that her father used remotely. Of note, positive for opiates and benzos prior presentation on 12/03/18. Denies chest pain, SOB, nausea/vomiting, urinary/bowel movement changes. All: PCNs Meds: per chart, intermittent compliance per daughter PMH: as above PSH: as above SHx: opiates, smoker, denies ETOH Past History - Travel Traveled outside of the country in the last 30 days: No Close contact w/someone who was outside of country & ill: No - Past Medical History Allergies/Adverse Reactions: Allergies Allergy/AdvReac Type Severity Reaction Status Date / Time Penicillins Allergy Verified 12/13/18 20:42 shellfish derived Allergy Verified 12/13/18 20:42 tomato Allergy Verified 12/13/18 20:42 Home Medications: Ambulatory Orders Acetaminophen [Tylenol] 650 mg PO PRN PRN 12/02/18 Amlodipine Besylate [Norvasc -] 5 mg PO DAILY 12/02/18 Aspirin [ASA -] 81 mg PO DAILY 12/02/18 Furosemide [Lasix] 40 mg PO DAILY 12/02/18 Ibuprofen [Ibu] 800 mg PO PRN PRN 12/02/18 Insulin Glargine,Hum.rec.anlog [Lantus] 15 unit SQ HS 12/02/18 Metformin HCl [Glucophage] 500 mg PO BIDAC 12/02/18 Clindamycin [Cleocin -] 300 mg PO Q6HPO #56 capsule 12/06/18 Ketorolac Tromethamine [Toradol] 10 mg PO Q6H #30 tablet 12/06/18 Anemia: No Asthma: No Cancer: No Cardiac Disorders: Yes (CABG - 2 STENTS) CVA: No COPD: Yes CHF: No Dementia: No Diabetes: Yes GI Disorders: No Disorders: No HTN: Yes Liver Disease: No Seizures: No Thyroid Disease: No - Surgical History Cardiac Surgery: Yes (CABG) - Psycho Social/Smoking Cessation Hx Smoking History: Unknown if ever smoked Number of Cigarettes Smoked Daily: 10 'Breaking Loose' booklet given: 12/03/18 Hx Alcohol Use: No Drug/Substance Use Hx: No Substance Use Type: None Hx Substance Use Treatment: Yes Review of Systems - Review of Systems Able to Perform ROS?: Yes Is the patient limited Senegalese proficient: Yes Constitutional: Yes: Chills, Fever (subjective), Malaise HEENTM: No: Recent change in vision, Nose Congestion, Throat Swelling Respiratory: No: Cough, Shortness of Breath, Stridor, Wheezing Cardiac (ROS): No: Chest Pain, Edema, Irregular Heart Rate, Syncope, Chest Tightness ABD/GI: Yes: Abdominal Distended (for weeks, predates prior hospitalization), Diarrhea (for multiple weeks). No: Blood Streaked Bowels, Constipated, Nausea, Poor Appetite, Poor Fluid Intake, Rectal Bleeding, Vomiting, Indigestion : Yes: Frequency. No: Burning, Dysuria, Discharge, Incontinence, Pain, Urgency Musculoskeletal: No: Back Pain, Joint Pain, Muscle Pain, Muscle Weakness Integumentary: Yes: See HPI (induration around R forearm wound). No: Pruritus, Rash Neurological: Yes: Pre-Existing Deficit (leg weakness / cramps s/p prior stroke) . No: Headache, Numbness, Tingling, Weakness Psychiatric: No: Stressors, Mood Swings, Change in Appetite Endocrine: Yes: Increased Thirst, Increased Urine, Unexplained Weight Loss. No : Excessive Sweating, Intolerance to Cold, Intolerance to Heat Hematologic/Lymphatic: No: Anemia, Blood Clots, Easy Bleeding All Other Systems: Reviewed and Negative *Physical Exam - Vital Signs Last Vital Signs Temp Pulse Resp BP Pulse Ox 98.3 F 88 18 163/89 98 12/13/18 20:39 12/13/18 20:39 12/13/18 20:39 12/13/18 20:39 12/13/18 20:39 - Physical Exam Comments: 12/13/18 22:27 Vitals reviewed, hypertensive, afebrile WDWN man, intermittently sleepy, laying in hospital bed MMM, EOMI, NCAT, eyes falling shut intermittently RRR, nl s1/s2, no murmurs rubs or gallops appreciated CTABL, normal WOB, no wheezes / rales / rhonchi Soft, nontender, distended WWP, no clubbing / cyanosis / edema 2+ radial and PT pulses Oriented x3, antigravity for 3 seconds b/l legs c/w baseline, CN 2-12 intact, MAEE, sensation to light touch intact throughout ED Treatment Course - LABORATORY CBC & Chemistry Diagram: 12/13/18 21:30 12/13/18 21:30 - ADDITIONAL ORDERS Additional order review: Laboratory Results 12/13/18 20:44 POC Glucometer > 600 12/13/18 20:44 POC Glucometer > 600 Medical Decision Making - Medical Decision Making 12/13/18 22:35 Pt is a 68yM w PMHx DM HTN CHF presenting with AMS for 2 hours. History notable for hx of heroin use, CVA, CHF, uncontrolled DM, response to narcan in the field as well ax extreme hyperglycemia with sugars reading >600 on arrival and several days of polydipsia, polyuria, and weight loss. Physical exam notable for hypertension, non-infected R forearm wound with only mild induration. DDX: HHS, DKA, CVA is less likely given neuro exam. Stimulating factor for hyperglycemia could be R arm wound, ?GI infection or heroin use / OD. -CBC, CMP, CP, Lactate -EKG -ASA, APAP, UTox, UA, UCx, ETOH -IVF 2L, placed ultrasound guided line L AC 12/13/18 22:44 -Lactate 2.6, Glucose 772, K 4.9, Cr 1.4, Troponin negative -6U regular insulin, most likely isolated hyperglycemia given labs and presentation 12/13/18 23:07 -Urine studies sent to lab, ASA and APAP pending -Alcohol negative, ESR and CRP slightly elevated -EKG: normal rate, NSR, normal axis, normal intervals, no ischemic changes 12/13/18 23:28 -UTox positive for benzos and opiates -UA without UTI -Patient would also benefit from further evaluation for his GI upset, mild distending, diarrhea -Will require further workup / evaluation for drug use disorder -Repeat Lactate / BGM after second L NS Dispo: Med/Surg for GUSTABO, hyperglycemia, and presumed OD. Patient endorsed to Dr. Healy, admitted Med/Surg under Dr. Mccray Discharge - Discharge Information Problems reviewed: Yes Clinical Impression/Diagnosis: Hyperglycemia, GUSTABO (acute kidney injury), Abdominal distention Overdose of opiate or related narcotic Qualifiers: Encounter type: initial encounter Injury intent: undetermined intent Qualified Code(s): T40.604A - Poisoning by unspecified narcotics, undetermined, initial encounter Condition: Guarded - Admission Yes - Follow up/Referral Referrals: Ernestine Alonso MD [Primary Care Provider] - - Patient Discharge Instructions - Post Discharge Activity
[2018-12-13] MEDS ORDERED: SODIUM CHLORIDE 1,000 ML IV STA (21:24)
--- NOTE | 2018-12-13 21:35 | PDOC ---
Attending Attestation - Resident Resident Name: ChalresArunSohail - ED Attending Attestation I have performed the following: I have examined & evaluated the patient, The case was reviewed & discussed with the resident, I agree w/resident's findings & plan - HPI HPI: 12/14/18 01:14 Pt has DM HTN CHF presenting with AMS for 2 hours. Patient was recently admitted for treatment of proximal R forearm abscess, given outpatient ABX and followup. Patient has poorly controlled DM and has had multiple blood sugar readings in the 300s. Daughter reports that he has complained of the chills and subjective fevers for several days and has had a change in his arm wound with pus or granulation tissue; no redness or discharge. Pt reports reports increasing pain and ?antibiotic compliance. Diarrhea / abdominal distention for 3 weeks. No constipation. EMS found patient somnolent and snoring, administered naloxone at which point patient woke up. Daughter states that her father used heroin in the past. Pt had opiates and benzos on 12/03/18 in his urine. Pt has no chest pain, SOB, nausea/vomiting, urinary/bowel movement changes. - Physicial Exam PE: 12/14/18 01:18 Agree with resident exam - Medical Decision Making 12/14/18 01:19 CBC normal; chem demonstrates elevated Glc; no acetone. Pt will be hydrated and treated with insulin. Admit to the hospital for uncontrolled blood sugar, AMS, and arm infection where he presumably injected self with heroin. Pt is positive for benzos and opiates today.
[2018-12-13 22:00] LABS: BASO % 0.8 % (0-2.0); EOS % 1.8 % (0-4.5); HEMATOCRIT 47.8 % (35.4-49); HEMOGLOBIN 15.5 GM/dL (11.7-16.9); LYMPH % 28.4 % (8-40); MCH 29.4 pg (25.7-33.7); MCHC 32.4 g/dl (32.0-35.9); MEAN CELL VOLUME 90.8 fl (80-96); MEAN PLT VOLUME 9.4 fl (7.5-11.1); MONO % 7.2 % (3.8-10.2); NEUT % 61.8 % (42.8-82.8); PLATELET COUNT 329 K/MM3 (134-434); RBC 5.26 M/mm3 (4.00-5.60); RDW 14.2 % (11.9-15.9); WHITE BLOOD COUNT 7.1 K/mm3 (4.0-10.0)
[2018-12-13 22:33] LABS: ALBUMIN 3.4 g/dl (3.4-5.0); ALK PHOS 178 U/L (45-117); ANION GAP 8 MMOL/L (8-16); BILIRUBIN,TOTAL 0.2 mg/dL (0.2-1); BLOOD UREA NITROGEN 11.7 mg/dL (7-18); CALCIUM 9.4 mg/dL (8.5-10.1); CHLORIDE 92 mmol/L (98-107); CO2 26 mmol/L (21-32); CREATININE 1.4 mg/dL (0.55-1.3); POTASSIUM 4.9 mmol/L (3.5-5.1); SGOT/AST 28 U/L (15-37); SGPT/ALT 27 U/L (13-61); SODIUM 126 mmol/L (136-145)
[2018-12-13 22:35] LABS: GLUCOSE,RANDOM 772 mg/dL (74-106)
[2018-12-13 22:52] LABS: ERYTHROCYTE SEDIMENTATION RATE 26 mm/hr (0-20)
[2018-12-13] MEDS ORDERED: INSULIN REGULAR HUMAN 100 UNITS/ML *VIAL IVPUSH ONE (22:55)
[2018-12-13 23:12] LABS: PH,URINE 6.5 (5.0-8.0); URINE APPEARANCE CLEAR; URINE BILIRUBIN NEGATIVE (NEGATIVE); URINE COLOR YELLOW; URINE GLUCOSE (UA) 3+ (NEGATIVE); URINE KETONE NEGATIVE (NEGATIVE); URINE LEUK ESTERASE NEGATIVE (NEGATIVE); URINE NITRITE NEGATIVE (NEGATIVE); URINE PROTEIN NEGATIVE (NEGATIVE); URINE UROBILINOGEN 0.2 mg/dL (0.2-1.0)
[2018-12-13 23:22] LABS: COCAINE, UR NEGATIVE ng/ml (CUTOFF=300); METHADONE, UR NEGATIVE ng/ml (CUTOFF=300); PHENCYCLIDINE,URINE NEGATIVE ng/ml (CUTOFF=25); URINE AMPHETAMINES NEGATIVE ng/ml (CUTOFF=500); URINE BARBITURATES NEGATIVE ng/ml (CUTOFF=200)
[2018-12-13 23:28] LABS: OPIATES, URI POSITIVE ng/ml (CUTOFF=300); URINE BENZODIAZEPINES POSITIVE ng/ml (CUTOFF=200)
[2018-12-14] MEDS ORDERED: SODIUM CHLORIDE 1,000 ML IV STA (00:09)
[2018-12-14] MEDS ORDERED: SODIUM CHLORIDE 1,000 ML IV SCH (00:15)
[2018-12-14] MEDS ORDERED: CLINDAMYCIN HCL 300 MG CAPSULE PO SCH (00:15)
[2018-12-14] MEDS ORDERED: MORPHINE SULFATE 2 MG/ML VIAL IVPUSH ONE (00:43)
--- NOTE | 2018-12-14 01:23 | PN ---
Teaching Attending Note Name of Resident: Ernestine Healy ATTENDING PHYSICIAN STATEMENT I saw and evaluated the patient. I reviewed the resident's note and discussed the case with the resident. I agree with the resident's findings and plan as documented. SUBJECTIVE: 68yM w uncontrolled DM, HTN, CHF recently admitted 12/03 for right upper extremity abscess. s/p i,d of abscess on admission day, would cultures only grew mixed skin jeff, pt discharged 12/06 with a 7 day course of clindamycin. Patient was found at home minimally responsive by daughter, ems called, mental status improved after he received narcan. Patient and daughter denied him taking opiates for pain. He does take PO troradol for chronic lower extremity pain. utox positive for opiates. Patient also was found to have severe hyperglycemia. OBJECTIVE: Last Vital Signs Temp Pulse Resp BP Pulse Ox 98.3 F 85 18 122/89 95 12/13/18 20:39 12/14/18 00:12 12/14/18 00:12 12/14/18 00:12 12/14/18 00:12 gen nontoxic appearing heent moist oral mucosa, no sinus tenderness cv s1+s2+rrr chest clear ext -right upper extremity wound appeared to be healing well Abnormal Lab Results 12/13/18 12/13/18 12/13/18 21:27 21:30 21:30 ESR Sodium 126 L Chloride 92 L Creatinine 1.4 H Random Glucose 772 H* Lactic Acid 2.6 H* Alkaline Phosphatase 178 H C-Reactive Protein 0.5 H Ur Specific [place] Urine Glucose (UA) Salicylates < 1.7 L Opiates Screen Benzodiazepines Screen 12/13/18 12/13/18 12/13/18 21:30 23:00 23:00 ESR 26 H Sodium Chloride Creatinine Random Glucose Lactic Acid Alkaline Phosphatase C-Reactive Protein Ur Specific [place] 1.039 H Urine Glucose (UA) 3+ H Salicylates Opiates Screen Positive A* Benzodiazepines Screen Positive A* imaging reviewed ASSESSMENT AND PLAN: Hyperosmolar hyperglycemic state - severe hyperglycemia which improved after 6 units IV novolog and IV fluid. No ketones noted on serum or in urine. Likely secondary to uncontrolled dm, noncompliance with meds. Altered mental status was likely partially secondary to severe hyperglycemia. Opiates+ on urine toxicology, noted to have opiates+ on previous admission, possible overdose. Was not taking his home metformin dose because it caused gi irritation. -med/surg -IV fluid hydration -novolog sliding scale -lantus 15units qhs -endocrine evel for optimal DM regimen -diabetic diet #Istop to check for state-wide opiate prescriptions. Suspect possible opiate abuse although patient denied #Tobacco abuse -strongly advised tobacco cessation to promote right arm wound healing #Lower ext pain - chronic, may be diabetic neuropathy, should r/o PVD. No infections appreciated on legs -trial of tylenol for pain -vascular surgery as an outpatient #DVT ppx -heparin sc
[2018-12-14] MEDS ORDERED: INSULIN (LEVEMIR) 100 UNITS/ML UNITS SQ ONE ×3 (01:29→09:34)
--- NOTE | 2018-12-14 01:29 | HP ---
CHIEF COMPLAINT: AMS PCP: Dr. Alonso HISTORY OF PRESENT ILLNESS: Patient is a 68 y/o male with a past medical history of DM, HTN, CHF, COPD, ashtma, afib ( not on AC), and cirrhosis who presents for AMS. Patient has been home with his daughter and she states throughout the day he has been more confused. She found him at night and he was snoring loudly and unresponsive. EMS arrived gave him a dose of narcan and he was more arousable. Patient denies taking any opioid medications. Patients diabetes has been poorly controlled although he has been taking his levemir at night. Patient has had poor follow up with his doctors. He has been in and out of the hospital for the last three months. Patient was recently discharged from [facility] where he had an abscess on the right extremity. He completed his course of antibiotics. Patient currently denies nausea, vomiting, headache, chest pain, or shortness of breath. 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 Allergies Penicillins Allergy (Verified 12/13/18 20:42) shellfish derived Allergy (Verified 12/13/18 20:42) tomato Allergy (Verified 12/13/18 20:42) HOME MEDICATIONS: Home Medications Medication Instructions Recorded Acetaminophen [Tylenol] 650 mg PO PRN PRN 12/02/18 Amlodipine Besylate [Norvasc -] 5 mg PO DAILY 12/02/18 Aspirin [ASA -] 81 mg PO DAILY 12/02/18 Furosemide [Lasix] 40 mg PO DAILY 12/02/18 Ibuprofen [Ibu] 800 mg PO PRN PRN 12/02/18 Insulin Glargine,Hum.rec.anlog 15 unit SQ HS 12/02/18 [Lantus] Metformin HCl [Glucophage] 500 mg PO BIDAC 12/02/18 Clindamycin [Cleocin -] 300 mg PO Q6HPO #56 capsule 12/06/18 Ketorolac Tromethamine [Toradol] 10 mg PO Q6H #30 tablet 12/06/18 REVIEW OF SYSTEMS CONSTITUTIONAL: Absent: fever, chills, diaphoresis, generalized weakness, malaise, loss of appetite, weight change HEENT: Absent: rhinorrhea, nasal congestion, throat pain, throat swelling, difficulty swallowing, mouth swelling, ear pain, eye pain, visual changes CARDIOVASCULAR: Absent: chest pain, syncope, palpitations, irregular heart rate, lightheadedness , peripheral edema RESPIRATORY: Absent: cough, shortness of breath, dyspnea with exertion, orthopnea, wheezing, stridor, hemoptysis GASTROINTESTINAL: Absent: abdominal pain, abdominal distension, nausea, vomiting, diarrhea, constipation, melena, hematochezia GENITOURINARY: Absent: dysuria, frequency, urgency, hesitancy, hematuria, flank pain, genital pain MUSCULOSKELETAL: Absent: myalgia, arthralgia, joint swelling, back pain, neck pain SKIN: Absent: rash, itching, pallor HEMATOLOGIC/IMMUNOLOGIC: Absent: easy bleeding, easy bruising, lymphadenopathy, frequent infections ENDOCRINE: Absent: unexplained weight gain, unexplained weight loss, heat intolerance, cold intolerance NEUROLOGIC: mental status changes, Absent: headache, focal weakness or paresthesias, dizziness, unsteady gait, seizure, bladder or bowel incontinence PSYCHIATRIC: Absent: anxiety, depression, suicidal or homicidal ideation, hallucinations. PHYSICAL EXAMINATION Vital Signs - 24 hr 12/13/18 20:39 Temperature 98.3 F Pulse Rate 88 Respiratory 18 Rate Blood Pressure 163/89 O2 Sat by Pulse 98 Oximetry (%) GENERAL: Awake, alert, and fully oriented, in no acute distress. sleepy HEAD: Normal with no signs of trauma. EYES: Pupils equal, round and reactive to light, extraocular movements intact, EARS, NOSE, THROAT: Moist mucous membranes. LUNGS: Breath sounds equal, clear to auscultation bilaterally. No wheezes, and no crackles. No accessory muscle use. HEART: Regular rate and rhythm, normal S1 and S2 ABDOMEN: Soft, nontender, not distended, normoactive bowel sounds, no guarding, no rebound, no masses. MUSCULOSKELETAL: Normal range of motion at all joints. LOWER EXTREMITIES: 2+ pulses, warm, well-perfused. No calf tenderness. No peripheral edema. SKIN: R upper extremity 2 cm open wound, erythematous induration below open wound, no pus or warmth CBC, BMP 12/13/18 21:30 12/14/18 01:30 ASSESSMENT/PLAN: Patient is a 68 y/o male with a past medical history of DM, HTN, CHF, COPD, ashtma, afib ( not on AC), and cirrhosis who presents for AMS. #AMS - likely 2/2 to concurrent opioid overdose and hyperglycemia - patient responded to narcan, Utox positive for benzos and opioid - control patients sugars better - per patients daughter he is closer to baseline - monitor patients mental status #hyperglycemia - 2/2 to uncontrolled DM - levemir 10 given, if sugars stable during day would continue his home 15 units - SS, BGM ACHS - f/u A1C - patient noncompliant with home metformin due to side effects - betahydrox 0.9, anion gap 8, patient not in DKA - fu Endocrine consult for better management #R upper extremity abscess - per daughter resolved and has started to increase in redness - monitor and consider restarting abx - patient completed recent course of clindamycin - f/u surgery consult for closure of wound #substance abuse - In Am iStop patient to determine route of medications - likely 2/2 to different hospital visits - Utox positive, awake overnight counselor patient on drug abuse #HFpEF - last ECHO: EF 65 %, LV normal size - continue lasix 80 daily #CAD - continue ASA - would start beta robe if patient can tolerate for mortality benefit #afib - questionable history, currently not seen on EKG - patient not on anticoagulation, not on rate control #HTN - continue amlodipine #DVT ppx - Heparin TID Dispo: monitor on med surg Visit type - Emergency Visit Emergency Visit: Yes ED Registration Date: 12/13/18 Care time: The patient presented to the Emergency Department on the above date and was hospitalized for further evaluation of their emergent condition. - New Patient This patient is new to me today: Yes Date on this admission: 12/14/18 - Critical Care Critical Care patient: No ATTENDING PHYSICIAN STATEMENT I saw and evaluated the patient. I reviewed the resident's note and discussed the case with the resident. I agree with the resident's findings and plan as documented. SUBJECTIVE: OBJECTIVE: ASSESSMENT AND PLAN:
[2018-12-14 01:55] LABS: BLOOD UREA NITROGEN 12.2 mg/dL (7-18); CALCIUM 8.9 mg/dL (8.5-10.1); CREATININE 1.1 mg/dL (0.55-1.3); POTASSIUM 4.7 mmol/L (3.5-5.1)
[2018-12-14] MEDS ORDERED: ACETAMINOPHEN 325 MG TABLET (FP) ONE (03:22)
[2018-12-14] MEDS: ACETAMINOPHEN 325 MG TABLET (FP) PO PRN (03:25)
[2018-12-14 05:45] VITALS: BMI 30.6
[2018-12-14] MEDS ORDERED: INSULIN (NOVOLOG) ASPART 100 UNITS/ML 10ML VIAL ONE ×2 (07:15→07:31)
[2018-12-14] MEDS: INSULIN SLIDING SCALE (NOVOLOG) 1 VIAL SQ SCH ×4 (07:16→21:50)
[2018-12-14] MEDS: HEPARIN NA (PORCINE) 5,000 UNITS/ML 1ML VIAL SQ SCH ×3 (07:16→21:47)
[2018-12-14 08:40] LABS: BASO % 0.6 % (0-2.0); EOS % 1.9 % (0-4.5); HEMATOCRIT 36.5 % (35.4-49); HEMOGLOBIN 12.3 GM/dL (11.7-16.9); MCH 30.1 pg (25.7-33.7); MCHC 33.7 g/dl (32.0-35.9); MEAN CELL VOLUME 89.3 fl (80-96); MEAN PLT VOLUME 9.3 fl (7.5-11.1); MONO % 7.3 % (3.8-10.2); NEUT % 61.2 % (42.8-82.8); PLATELET COUNT 237 K/MM3 (134-434); RBC 4.09 M/mm3 (4.00-5.60); RDW 13.9 % (11.9-15.9); WHITE BLOOD COUNT 7.9 K/mm3 (4.0-10.0)
[2018-12-14 09:10] LABS: ALBUMIN 2.4 g/dl (3.4-5.0); BILIRUBIN,TOTAL 0.1 mg/dL (0.2-1); BLOOD UREA NITROGEN 12.9 mg/dL (7-18); CALCIUM 8.4 mg/dL (8.5-10.1); CREATININE 0.9 mg/dL (0.55-1.3); MAGNESIUM 1.8 mg/dL (1.8-2.4); PHOSPHOROUS 3.5 mg/dL (2.5-4.9); POTASSIUM 4.4 mmol/L (3.5-5.1); TOT PROT 5.7 g/dl (6.4-8.2)
--- NOTE | 2018-12-14 09:36 | PN ---
Progress Note (short form) - Note Progress Note: Patient seen and examined at bedside denies all complaints Utox positive for opioids and benzos-patient adamantly denies use HbA1C 15.4%! States he uses insulin at home on exam he is still tired appearing but will wake up to answer questions RRR faint crackles on the right other sánchez clear to auscultation trace non pitting edema bilaterally abdomen is soft non tender non distended right AC wound is open without erythema or drainage. no foul smell. good healthy granulation tissue underneath Plan: Will DC IVF as patient is on lasix as well continue monitoring his mental status will give 10 units lantus now for hyperglycemia and increase his home dose to 20 units QHS from 15 units QHS continue ISS diabetic diet patient counselled on importance of abstaining from illicit drug use and mixing different narcotics together f/u endocrine consult f/u surgery consult for ? wound closure pseudohyponatremia from hyperglycemia-sodium corrects WNL 138-141 depending on formula used anticipate discharge in next 24 hours Please see H&P done earlier this AM for further information Visit type - Emergency Visit Emergency Visit: Yes ED Registration Date: 12/13/18 Care time: The patient presented to the Emergency Department on the above date and was hospitalized for further evaluation of their emergent condition. - New Patient This patient is new to me today: Yes Date on this admission: 12/14/18 - Critical Care Critical Care patient: No
[2018-12-14] MEDS: FUROSEMIDE 40 MG TABLET (FP) PO SCH (09:54)
[2018-12-14] MEDS: ASPIRIN 81 MG CHEWABLE TABLETS PO SCH (09:54)
[2018-12-14] MEDS: amLODIPine BESYLATE 5 MG TABLET (FP) PO SCH (09:54)
[2018-12-14] MEDS ORDERED: FLU VACCINE QUAD 60 MCG/0.5 ML (MDV 19-20) IM ONE (10:00)
[2018-12-14] MEDS: NICOTINE 7 MG/24 HOURS TOPICAL PATCH TD SCH (10:01)
[2018-12-14 18:47] VITALS: TEMP 98.3
[2018-12-14] MEDS ORDERED: KETOROLAC TROMETHAMINE 10 MG TABLET PO ONE (20:07)
--- NOTE | 2018-12-14 20:20 | EKG ---
Test Reason : Blood Pressure : / mmHG Vent. Rate : 091 BPM Atrial Rate : 091 BPM P-R Int : 176 ms QRS Dur : 128 ms QT Int : 356 ms P-R-T Axes : 070 054 018 degrees QTc Int : 437 ms NORMAL SINUS RHYTHM RIGHT BUNDLE BRANCH BLOCK ABNORMAL ECG WHEN COMPARED WITH ECG OF 03-DEC-2018 00:48, T WAVE INVERSION NOW EVIDENT IN ANTERIOR LEADS Confirmed by MD EDGARDO, ANAND ([id number]) on 12/14/2018 8:19:50 PM Referred By: Confirmed By:ANAND REYNOSO MD
[2018-12-14] MEDS ORDERED: INSULIN (LEVEMIR) 100 UNITS/ML UNITS SQ SCH ×2 (22:00)
[2018-12-15] MEDS: ACETAMINOPHEN 325 MG TABLET (FP) PO PRN (04:37)
[2018-12-15] MEDS: HEPARIN NA (PORCINE) 5,000 UNITS/ML 1ML VIAL SQ SCH ×2 (06:43→14:56)
[2018-12-15] MEDS: INSULIN SLIDING SCALE (NOVOLOG) 1 VIAL SQ SCH ×2 (06:44→10:57)
[2018-12-15] MEDS ORDERED: INSULIN (LEVEMIR) 100 UNITS/ML UNITS SQ SCH (08:07)
[2018-12-15] MEDS ORDERED: PT OWN MED DRAWER 7, Y5N ONE (10:15)
[2018-12-15] MEDS ORDERED: INSULIN (LEVEMIR) 100 UNITS/ML UNITS SQ ONE (10:18)
[2018-12-15 10:46] VITALS: BP 130/86; PULSE 80
[2018-12-15] MEDS: NICOTINE 7 MG/24 HOURS TOPICAL PATCH TD SCH (10:49)
[2018-12-15] MEDS: FUROSEMIDE 40 MG TABLET (FP) PO SCH (10:49)
[2018-12-15] MEDS: ASPIRIN 81 MG CHEWABLE TABLETS PO SCH (10:49)
[2018-12-15] MEDS: amLODIPine BESYLATE 5 MG TABLET (FP) PO SCH (10:49)
[2018-12-15] MEDS ORDERED: INSULIN (NOVOLOG) ASPART 100 UNITS/ML 10ML VIAL ONE (10:52)
--- NOTE | 2018-12-15 12:32 | PN ---
Teaching Attending Note Name of Resident: Aislinn Devries ATTENDING PHYSICIAN STATEMENT I saw and evaluated the patient. I reviewed the resident's note and discussed the case with the resident. I agree with the resident's findings and plan as documented. SUBJECTIVE: patient seen and examined at bedside. denies any symptoms Fingersticks better controlled with increased levemir dose OBJECTIVE: AAOx3 ambulating CTAB RRR Soft non tender on distended Right AC woud C/D/I. no drainage or foul smell ASSESSMENT AND PLAN: Patient can be discharged with endocrine ad PMD follow up will need follow up with surgeon as well will discharge with increased lantus-25 units QHS discussed symptoms of hypoglycemia with daughter and patient see discharge summary for further detail
--- NOTE | 2018-12-15 13:14 | CONSULT ---
Consult Consult Specialty:: endocrine Referred by:: Resident Ernestine Healy Reason for Consultation:: DMT2 - History of Present Illness Chief Complaint: rt arm wound high sugrs History of Present Illness: 68yM w DM2, HTN, CHF recently admitted 12/03 for right upper extremity abscess. discharged 12/06 with a 7 day course of clindamycin. Patient was found at home minimally responsive by daughter, ems called,has high sugars frequent urination, dry mouth,denies cp fever chills,nausea or vomiting. - Alcohol/Substance Use Hx Alcohol Use: No - Smoking History Smoking history: Unknown if ever smoked Aproximately how many cigarettes per day: 10 Home Medications - Allergies Allergies/Adverse Reactions: Allergies Allergy/AdvReac Type Severity Reaction Status Date / Time Penicillins Allergy Verified 12/13/18 20:42 shellfish derived Allergy Verified 12/13/18 20:42 tomato Allergy Verified 12/13/18 20:42 - Home Medications Home Medications: Ambulatory Orders Amlodipine Besylate [Norvasc -] 5 mg PO DAILY 12/02/18 Aspirin [ASA -] 81 mg PO DAILY 12/02/18 Furosemide [Lasix] 40 mg PO DAILY 12/02/18 Ibuprofen [Ibu] 800 mg PO PRN PRN 12/02/18 Metformin HCl [Glucophage] 500 mg PO BIDAC 12/02/18 Insulin Glargine,Hum.rec.anlog [Lantus] 25 unit SQ HS 30 Days #8 vial 12/15/18 Miscellaneous Medical Supply [Glucometer Device] 1 each .ROUTE ASDIR #1 kit Miscellaneous Medical Supply [Glucometer Test Strips #100] 1 each THERESA ASDIR #1 box 12/15/18 Syringe,Needle,Insuln,Sf,0.3ML [Safetyglide Insulin Syringe] 1 each HS #30 disp.syrin 12/15/18 Review of Systems - Review of Systems Constitutional: reports: Weakness Eyes: reports: No Symptoms HENT: reports: No Symptoms Neck: reports: No Symptoms Cardiovascular: reports: No Symptoms Respiratory: reports: No Symptoms Gastrointestinal: reports: No Symptoms Genitourinary: reports: No Symptoms Musculoskeletal: reports: Muscle Pain Integumentary: reports: No Symptoms Neurological: reports: No Symptoms Physical Exam Vital Signs: Vital Signs Temperature 98.3 F 12/15/18 10:00 Pulse Rate 80 12/15/18 10:00 Respiratory Rate 16 12/15/18 10:00 Blood Pressure 130/86 12/15/18 10:00 O2 Sat by Pulse Oximetry (%) 98 12/14/18 21:00 Constitutional: Yes: Calm Eyes: Yes: EOM Intact HENT: Yes: Normocephalic Neck: Yes: Trachea Midline Cardiovascular: Yes: Regular Rate and Rhythm Respiratory: Yes: CTA Bilaterally Gastrointestinal: Yes: Normal Bowel Sounds ...Rectal Exam: Yes: Deferred Renal/: Yes: WNL Breast(s): Yes: WNL Musculoskeletal: Yes: Muscle Weakness Extremities: Yes: Delayed Capillary Refill Edema: No Peripheral Pulses WNL: Yes Integumentary: Yes: Skin Tear Wound/Incision: Yes: Dressing Removed, Excoriated, Unapproximated Neurological: Yes: Alert, Oriented Labs: CBC, BMP 12/14/18 07:25 12/14/18 07:25 Problem List - Problems (1) Type 2 diabetes mellitus with diabetic nephropathy Problems reviewed: Yes Code(s): E11.21 - TYPE 2 DIABETES MELLITUS WITH DIABETIC NEPHROPATHY (2) GUSTABO (acute kidney injury) Code(s): N17.9 - ACUTE KIDNEY FAILURE, UNSPECIFIED (3) Hyperglycemia Code(s): R73.9 - HYPERGLYCEMIA, UNSPECIFIED (4) Abscess Code(s): L02.91 - CUTANEOUS ABSCESS, UNSPECIFIED (5) Cellulitis Code(s): L03.90 - CELLULITIS, UNSPECIFIED Qualifiers: Site of cellulitis: extremity Site of cellulitis of extremity: lower extremity Laterality: right Qualified Code(s): L03.115 - Cellulitis of right lower limb Assessment/Plan Current Active Problems GUSTABO (acute kidney injury) (Acute) Abdominal distention (Acute) Hyperglycemia (Acute) Overdose of opiate or related narcotic (Acute) cellulitis upper ext abxcess injury ladder Laboratory Results - last 24 hr 12/14/18 12/14/18 12/15/18 17:38 21:43 06:20 POC Glucometer 248 222 330 12/15/18 10:55 POC Glucometer 148 Laboratory Tests 12/14/18 12/14/18 12/14/18 07:25 07:25 12:03 Sodium 131 L Potassium 4.4 Chloride 100 Carbon Dioxide 24 Anion Gap 7 L BUN 12.9 Creatinine 0.9 Est GFR (CKD-EPI)AfAm 100.65 POC Glucometer 174 Hemoglobin A1c % 15.4 H plan; tetnus vaxine bgm achs wound care topical silvadee levemir 30 units am follow up outpatient
[2018-12-15] MEDS ORDERED: TETANUS AND DIPHTHERIA TOXOID 0.5 ML DISP.SYRIN IM ONE (13:19)
[2018-12-15] MEDS ORDERED: INSULIN SLIDING SCALE (NOVOLOG) 1 VIAL SQ SCH (13:20)
--- NOTE | 2018-12-15 14:15 | DS ---
Physical Exam: SUBJECTIVE: Patient seen and examined. He has no current complaints. He denies any pain or n/v, fever, chills. OBJECTIVE: Vital Signs Period Temp Pulse Resp BP Sys/Elizalde Pulse Ox Last 24 Hr 97.7 F-98.3 F 70-80 16-18 122-130/76-86 98 PHYSICAL EXAM GENERAL: A&Ox3 HEAD: Normal with no signs of trauma. EYES: PERRL, extraocular movements intact ENT: Ears normal, nares patent, moist mucous membranes. NECK: Trachea midline LUNGS: Breath sounds equal, clear to auscultation bilaterally HEART: Regular rate and rhythm, no murmur ABDOMEN: Soft, nontender, nondistended, normoactive bowel sounds EXTREMITIES: Warm, well-perfused, no edema. NEUROLOGICAL: Cranial nerves II through XII grossly intact. Normal speech. PSYCH: Normal mood, normal affect. SKIN: Warm, dry, normal turgor LABS Laboratory Results - last 24 hr 12/14/18 12/14/18 12/15/18 17:38 21:43 06:20 POC Glucometer 248 222 330 12/15/18 10:55 POC Glucometer 148 HOSPITAL COURSE: Mr. Maravilla is a 68y/o male with uncontrolled DM, CAD s/p stents and CABG, CVA, HTN, CHF, COPD, asthma, a-fib (not on AC), hx of heroin use, and cirrhosis who presents for AMS. On the day of presentation, the patient was becoming increasingly confused per daughter then while sleeping he became unresponsive. He became more alert after EMS administered Narcan. He denied using opiates but urine tox was positive for opioids and benzos. Negative for alcohol. Pt was counseled on the dangers of using narcotics. Patient also reported polydypsia and polyuria several days prior to presentation. BG was 772 and LA 2.6 on presentation. IV fluids were administered as well as insulin. Patient is not compliant with medications. Of note, pt was recently incarcerated for 2 years for drug-related activity and was released in September. He is still trying to establish primary care. A1C was 15.7. Endocrine was consulted. Pt was discharged on Levemir 30U and instructed to follow up. Patient was at [facility] earlier this month for right arm abscess following a ladder falling on him. He was experiencing myalgias, fevers, and chills prior to this presentation. Pt had previous I&D. No fever or leukocytosis during admission. Blood culture was negative. Pt was given tetanus shot. Pt was treated with clindamycin and instructed to follow up with surgery. He was prescribed silvadene cream. Date of Admission:12/13/18 Date of Discharge: 12/15/18 Minutes to complete discharge: 35 Discharge Summary Problems reviewed: Yes Reason For Visit: ACUTE KIDNEY INJURY, HYPERGLYCEMIA,OPIATE OR Current Active Problems GUSTABO (acute kidney injury) (Acute) Abdominal distention (Acute) Hyperglycemia (Acute) Overdose of opiate or related narcotic (Acute) Type 2 diabetes mellitus with diabetic nephropathy (Acute) Condition: Stable - Instructions Diet, Activity, Other Instructions: Hospital visit: You were admitted to the hospital because you were confused and was unable to be woken from sleep. You were treated for opioid overdose an improved. Your blood sugar was also high. You were given insulin to control it. You were given the flu shot and a tetanus booster shot. Medications: Your insulin has changed. STOP Lantus. START Levemir 30 units in the morning. Silvadene cream apply to affected area once a day. Continue your other home medications. Follow up: Dr. Zarate, endocrinology, in 2-3 weeks for your diabetes. Your A1C was 15.4. ( measurement of blood sugar) Dr. Crump, surgery, in 1 week for the abscess on your arm. Dr. Nunez, primary care, in 2 weeks to talk about opioid use. You should also have a chest x-ray or CAT scan to see if you have an infection. Instructions: You were told to stop using opioids and other controlled and illegal substances. These can cause loss of consciousness, aspiration which leads to lung infections, or even . Return to the emergency room if you overdose on medications, lose consciousness , have a seizure, chest pain, trouble breathing, fever above 101, or the infection on your arm gets red and painful. Referrals: Hitesh Crump MD [Staff Physician] - Ernestine Alonso MD [Primary Care Provider] - Vicente Ramos MD [Staff Physician] - Disposition: HOME - Home Medications Comprehensive Discharge Medication List: Ambulatory Orders Amlodipine Besylate [Norvasc -] 5 mg PO DAILY 12/02/18 Aspirin [ASA -] 81 mg PO DAILY 12/02/18 Furosemide [Lasix] 40 mg PO DAILY 12/02/18 Ibuprofen [Ibu] 800 mg PO PRN PRN 12/02/18 Metformin HCl [Glucophage] 500 mg PO BIDAC 12/02/18 Insulin (Levemir) [Levemir Vial] 30 units SQ AM 30 Days #10 units 12/15/18 Miscellaneous Medical Supply [Glucometer Device] 1 each .ROUTE ASDIR #1 kit Miscellaneous Medical Supply [Glucometer Test Strips #100] 1 each THERESA ASDIR #1 box 12/15/18 Silver Sulfadiazine 1% Top Cr [Silvadene -] 1 applic TP DAILY #1 jar 12/15/18 Syringe,Needle,Insuln,Sf,0.3ML [Safetyglide Insulin Syringe] 1 each HS #30 disp.syrin 12/15/18 This patient is new to me today: Yes Date on this admission: 12/15/18 Emergency Visit: Yes ED Registration Date: 12/13/18 Care time: The patient presented to the Emergency Department on the above date and was hospitalized for further evaluation of their emergent condition. Critical Care patient: No - Discharge Referral Referred to [facility] Med P.C[facility] No ATTENDING PHYSICIAN STATEMENT I saw and evaluated the patient. I reviewed the resident's note and discussed the case with the resident. I agree with the resident's findings and plan as documented. SUBJECTIVE: OBJECTIVE: ASSESSMENT AND PLAN:
== END 2018-12-15 15:23 | disposition home or self-care (01) | DRG 917 ==
LOC: JER 20:31 → JERBED 23:36 → J5S 12-14 04:10
PROVIDERS: ADMIT Internal Medicine; ATTEND Internal Medicine
DX: T42.4X1A Poisoning by benzodiazepines, accidental (unintentional), initial encounter (principal); G93.41 Metabolic encephalopathy; N17.9 Acute kidney failure, unspecified; I50.32 Chronic diastolic (congestive) heart failure; L02.413 Cutaneous abscess of right upper limb; E11.65 Type 2 diabetes mellitus with hyperglycemia; I11.0 Hypertensive heart disease with heart failure; Z79.4 Long term (current) use of insulin; Z88.0 Allergy status to penicillin; J44.9 Chronic obstructive pulmonary disease, unspecified; I48.91 Unspecified atrial fibrillation; K74.60 Unspecified cirrhosis of liver; F17.210 Nicotine dependence, cigarettes, uncomplicated; I25.10 Atherosclerotic heart disease of native coronary artery without angina pectoris; Y92.89 Other specified places as the place of occurrence of the external cause; Z91.14 Patient's other noncompliance with medication regimen; E11.21 Type 2 diabetes mellitus with diabetic nephropathy; Z95.1 Presence of aortocoronary bypass graft; Z86.73 Personal history of transient ischemic attack (TIA), and cerebral infarction without residual deficits
CPT/HCPCS: 36415; 71045-TC-FY; 80048; 80053; 80307; 81003; 82010; 82550; 82962; 83036; 83605; 83735; 84100; 84484; 85025; 85651; 86140; 87040; 87086; 93005; 93010; 99285-25; G0008; J1644; J7030; Q2036

== ENCOUNTER 2019-04-09 09:06 | Inpatient (IN) | payer OTHER ==
--- NOTE | 2019-04-09 09:19 | BHS.RME ---
Substance Use & Tx History - Substance Use History Opiates (Heroin) Substance amount: 7-8 bags Frequency of use: Daily Substance route: Inhalation (ex: sniffing or snorting) Date of Last Use: 04/08/19 - Last Treatment Date of last treatment: 11/2018 Treatment type: Substance Use Disorder ([facility]) Where was last treatment: Detox Physical/Psych/Mental Status - Thinking Thought Processes: Tight, Logical, Goal Directed Thought content: Future oriented - Physical Health Problems Is patient presently having any pain?: No Does patient presently have any injuries (include location): No Does patient currently have a fever: No Is patient : No COWS - Scale Resting Pulse: 1= [place] 81-100 Sweatin= Beads of Sweat on Face Restless Observation: 1= Difficult to Sit Still Pupil Size: 1= Pupils >than Normal Bone or Joint Aches: 0= None Runny Nose/ Eye Tearin= None GI Upset > 30mins: 1= Stomach Cramp Tremor Observation: 1= Tremor [place], Not Seen Yawning Observation: 1= 1-2x During Session Anxiety or Irritability: 1=Feels Anxious/Irritable Goose Flesh Skin: 3=Piloerection COWS Score: 13
[2019-04-09 10:07] VITALS: BMI 24.5
--- NOTE | 2019-04-09 11:02 | HP ---
COWS - Scale Resting Pulse: 1= [place] 81-100 Sweatin= Beads of Sweat on Face Restless Observation: 1= Difficult to Sit Still Pupil Size: 1= Pupils >than Normal Bone or Joint Aches: 0= None Runny Nose/ Eye Tearin= None GI Upset > 30mins: 1= Stomach Cramp Tremor Observation: 1= Tremor [place], Not Seen Yawning Observation: 1= 1-2x During Session Anxiety or Irritability: 1=Feels Anxious/Irritable Goose Flesh Skin: 3=Piloerection COWS Score: 13 CIWA Score - Admission Criteria OASAS Guidelines: Admission for Medically Managed Detox: Requires at least one of the followin. CIWA greater than 12 2. Seizures within the past 24 hours 3. Delirium tremens within the past 24 hours 4. Hallucinations within the past 24 hours 5. Acute intervention needed for co occurring medical disorder 6. Acute intervention needed for co occurring psychiatric disorder 7. Severe withdrawal that cannot be handled at a lower level of care (continued vomiting, continued diarrhea, abnormal vital signs) requiring intravenous medication and/or fluids 8. Admitting History and Physical - Admission Chief Complaint: "I need help and want to stop using heroin." History of Present Illness: 68 year old male with histoyr of HTN, CHF, CAD s/p stents and CABG, multiple CVA 's S/p abscess right arm I&D abd treated with antibiotics (cellulitis) He continues to use 7-8 bags of heroin daily, intravenously, Never overdose but carries no narcan kit. He is at a very high risk of overdose and his multiple medical problems contribute to his need for inpatient detox. He is smoking 8 ciggarettes per day. He is homeless and is not in care home system. 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 He has poor support systems. He does collect SSI and SSD. History Source: Patient Limitations to Obtaining History: No Limitations - Past Medical History [employer] INSPECTOR: Yes: CVA Cardiovascular: Yes: CAD, CHF, HTN Endocrine: Yes: Diabetes Mellitus - Past Surgical History Past Surgical History: Yes: Bypass, CABG - Smoking History Smoking history: Current some day smoker Have you smoked in the past 12 months: Yes Aproximately how many cigarettes per day: 9 - Alcohol/Substance Use Hx Alcohol Use: No - Social History Usual Living Arrangement: Yes: Alone, Other Do you think of yourself as: Straight/Heterosexual ADL: Independent Occupation: senior construction project manager History of Recent Travel: No Admission [facility] [place] [employer] Allergies/Adverse Reactions: Allergies Allergy/AdvReac Type Severity Reaction Status Date / Time Penicillins Allergy Intermediate Rash Verified 04/09/19 09:50 shellfish derived Allergy Intermediate Rash Verified 04/09/19 09:50 tomato Allergy Intermediate Rash Verified 04/09/19 09:50 Exam Limitations: No Limitations - Ebola screening Have you traveled outside of the country in the last 21 days: No Have you had contact with anyone from an Ebola affected area: No Have you been sick,other than usual withdrawal symptoms: No Do you have a fever: No - Review of Systems Constitutional: Chills, Diaphoresis, Unintentional Wgt. Loss EENT: reports: No Symptoms Reported Respiratory: reports: No Symptoms reported Cardiac: reports: No Symptoms Reported GI: reports: No Symptoms Reported : reports: No Symptoms Reported Musculoskeletal: reports: No Symptoms Reported Integumentary: reports: No Symptoms Reported Neuro: reports: No Symptoms reported Endocrine: reports: No Symptoms Reported Hematology: reports: No Symptoms Reported Psychiatric: reports: Judgement Intact, Mood/Affect Appropiate, Orientated x3, Anxious Other Systems: Reviewed and Negative Patient History - Patient Medical History Hx Anemia: No Hx Asthma: Yes Hx Chronic Obstructive Pulmonary Disease (COPD): No Hx Cancer: No Hx Cardiac Disorders: Yes (CABG in 2015) Hx Congestive Heart Failure: No Hx Hypertension: Yes Hx Pacemaker: No HX Cerebrovascular Accident: No Hx Seizures: No Hx Dementia: No Hx Diabetes: Yes Hx Gastrointestinal Disorders: No Hx Liver Disease: No Hx Genitourinary Disorders: No Hx Sexually Transmitted Disorders: No Hx Renal Disease (ESRD): No Hx Thyroid Disease: No Hx Human Immunodeficiency Virus (HIV): No (Agree to HIV AB test) Hx Hepatitis C: No Hx Depression: No Hx Suicide Attempt: No Hx Schizophrenia: No - Patient Surgical History Past Surgical History: No Hx Neurologic Surgery: No Hx Cataract Extraction: No Hx Cardiac Surgery: Yes (CABG 2015) Hx Lung Surgery: No Hx Breast Surgery: No Hx Breast Biopsy: No Hx Abdominal Surgery: No Hx Appendectomy: No Hx Cholecystectomy: No Hx Genitourinary Surgery: No Hx Section: No Hx Orthopedic Surgery: No Other Surgical History: Right Inquinal Hernia Anesthesia Reaction: No - PPD History Documented Results: Negative w/o proof Implanted On Prior [facility] Admission?: Yes Date: 01/07/19 Results: negative PPD to be Administered?: No - Smoking Cessation Smoking history: Current some day smoker Have you smoked in the past 12 months: Yes Aproximately how many cigarettes per day: 9 Cigars Per Day: 0 Hx Chewing Tobacco Use: No Initiated information on smoking cessation: Yes 'Breaking Loose' booklet given: 04/09/19 - Substances abused Heroin Substance route: Injection Frequency: Daily Amount used: 8-9 bags Age of first use: 19 Date of last use: 04/08/19 Admission Physical Exam [facility] - Vital Signs Vital Signs: Vital Signs - 24 hr 04/09/19 10:01 Temperature 97.3 F L Pulse Rate 86 Respiratory 20 Rate Blood Pressure 149/74 - Physical General Appearance: Yes: Mild Distress HEENTM: Yes: EOMI, Hearing grossly Normal, Normal ENT Inspection, Normocephalic , Normal Voice, CHRISSY, Pharynx Normal, Tm's normal Respiratory: Yes: Chest Non-Tender, Lungs Clear, Normal Breath Sounds, No Respiratory Distress, No Accessory Muscle Use Neck: Yes: No masses,lesions,Nodules, Supple, Trachea in good position Cardiology: Yes: Regular Rhythm, Regular Rate, S1, S2 Abdominal: Yes: Normal Bowel Sounds, Non Tender, Flat, Soft Genitourinary: Yes: Within Normal Limits Extremities: Yes: Normal Capillary Refill, Normal Inspection, Normal Range of Motion, Non-Tender (+1), Pedal Edema 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, Fully Oriented, Alert, Motor Strength 5/5, Normal Mood/Affect, Normal Response Integumentary: Yes: Normal Color, Warm Lymphatic: Yes: Within Normal Limits - Diagnostic (1) Cellulitis Current Visit: Yes Status: Acute Qualifiers: Site of cellulitis: extremity Site of cellulitis of extremity: lower extremity Laterality: right Qualified Code(s): L03.115 - Cellulitis of right lower limb (2) Type 2 diabetes mellitus with diabetic nephropathy Current Visit: Yes Status: Acute (3) CHF (congestive heart failure) Current Visit: Yes Status: Chronic (4) CVA (cerebral vascular accident) Current Visit: Yes Status: Chronic (5) Diabetes mellitus type 1, uncontrolled, insulin dependent Current Visit: Yes Status: Chronic Comment: Once again, pt has not presented medications and previous provider's reports are not available. Recent diagnosis (x-rays) reveal degenerative changes in L-spin, bilateral knees along with bi-partite patella. Pt appears to have a left inquinal hernia and cardiology (Hx CABG) visit is pending (6) HTN (hypertension) Current Visit: Yes Status: Chronic (7) Hepatitis C antibody positive in blood Current Visit: Yes Status: Chronic Comment: continue to monitor (8) Penicillin allergy Current Visit: Yes Status: Chronic (9) S/P CABG (coronary artery bypass graft) Current Visit: Yes Status: Chronic Comment: In need of Cardiology reports and F/U Screened but not Admitted - Documentation of Visit Screened but not Admitted: No Breathalyzer - Breathalyzer Breathalyzer: 0 Urine Drug Screen - Test Device Lot number: [id number] Expiration date: 01/20/21 - Control Is test valid?: Yes - Results Drug screen NEGATIVE: No Urine drug screen results: FEN-Fentanyl, MOP-Opiates Inpatient Rehab Admission - Rehab Decision to Admit Inpatient rehab admission?: No
[2019-04-09] MEDS ORDERED: IBUPROFEN 400 MG TABLET (FP) PO PRN (11:07)
[2019-04-09] MEDS ORDERED: cloNIDine HCL 0.1 MG TABLET PO PRN (11:07)
[2019-04-09] MEDS ORDERED: METHOCARBAMOL 500 MG TABLET PO PRN (11:07)
[2019-04-09] MEDS ORDERED: MAGNESIUM CITRATE 300 ML BOTTLE PO PRN (11:07)
[2019-04-09] MEDS ORDERED: MAG HYDROX/AL HYDROX/SIMETH 30 ML UNIT-DOSE CUP PO PRN (11:07)
[2019-04-09] MEDS ORDERED: MAGNESIUM HYDROX 2400MG/30ML ORAL SUSPENSION 30 ML CUP PO PRN (11:07)
[2019-04-09] MEDS ORDERED: ACETAMINOPHEN 325 MG TABLET (FP) PO PRN ×2 (11:07)
[2019-04-09] MEDS ORDERED: BISMUTH SUBSALICYLATE 524 MG/30 ML UD PO PRN (11:07)
[2019-04-09] MEDS ORDERED: MENTHOL/PHENOL 1 EACH UD MM PRN (11:07)
[2019-04-09] MEDS ORDERED: TRAMADOL HCL 50 MG PO PRN (11:09)
[2019-04-09] MEDS ORDERED: PATIENT'S OWN MEDICATION (NON-FORMULARY) (Terbinafine Hcl [Terbinafine Hcl] 250 MG) PO SCH (11:15)
[2019-04-09] MEDS ORDERED: METHADONE HCL 10 MG TABLET (FOR DETOX USE ONLY) PO ONE (12:30)
[2019-04-09] MEDS: FUROSEMIDE 20 MG TABLET (FP) PO SCH (12:39)
[2019-04-09] MEDS: metoPROLOL SUCCINATE 25 MG TAB.SR.24H (FP) PO SCH (12:39)
[2019-04-09] MEDS: NICOTINE 14 MG/24 HOURS TOPICAL PATCH TD SCH (15:19)
[2019-04-09] MEDS: SULFAMETHOXAZOLE/TRIMETHOPRIM 800MG/160MG D.S. TABLET PO SCH ×2 (15:19→21:16)
[2019-04-09 16:05] LABS: HEMATOCRIT 40.3 % (35.4-49); HEMOGLOBIN 13.5 GM/dL (11.7-16.9); MCH 29.8 pg (25.7-33.7); MCHC 33.4 g/dl (32.0-35.9); MEAN CELL VOLUME 89.1 fl (80-96); MEAN PLT VOLUME 9.1 fl (7.5-11.1); PLATELET COUNT 229 K/MM3 (134-434); RBC 4.53 M/mm3 (4.00-5.60); RDW 14.6 % (11.9-15.9); WHITE BLOOD COUNT 6.3 K/mm3 (4.0-10.0)
[2019-04-09 16:06] LABS: ALBUMIN 3.1 g/dl (3.4-5.0); BILIRUBIN,TOTAL 0.3 mg/dL (0.2-1); CALCIUM 8.7 mg/dL (8.5-10.1); CREATININE 0.8 mg/dL (0.55-1.3); POTASSIUM 4.2 mmol/L (3.5-5.1)
[2019-04-09] MEDS: metFORMIN HCL 500 MG TABLET (FP) PO SCH (16:54)
[2019-04-09] MEDS: TOLNAFTATE 1% CREAM 15 GM TUBE TP SCH (21:15)
[2019-04-09] MEDS: MELATONIN 5 MG TABLETS PO PRN (21:16)
[2019-04-09] MEDS: THIAMINE HCL 100 MG TABLET (FP) PO SCH (21:16)
[2019-04-09] MEDS: INSULIN (LEVEMIR) 100 UNITS/ML UNITS SQ SCH (21:16)
[2019-04-10] MEDS: metFORMIN HCL 500 MG TABLET (FP) PO SCH ×2 (06:14→17:39)
--- NOTE | 2019-04-10 08:36 | CONSULT ---
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 Refer to addiction counselor's summary for further information Medical History: Significant for bronchial asthma, hypertension, type 2 diabetes mellitus, coronary artery disease, congestive heart failure, history of cerebro-vascular accident x3, history of stent placement and CABG in 2016. Smokes 8 cigarettes daily Psychiatric History: Denies history of previous psychiatric treatment. Physical/Sexual Abuse/Trauma History: Denies history of abuse as a child or DV relationship as an adult Additional Comment: Reports history of 3-4 previous arrests including 2 felony convictions. Reports being on parole till 2020 Mental Status Exam - Mental Status Exam Alert and Oriented to: Time, Place, Person Cognitive Function: Fair Patient Appearance: Well Groomed Mood: Depressed (I'm depressed because I don't have a place to go when I finish here), Hopeful Patient Behavior: Cooperative Speech Pattern: Clear Voice Loudness: Normal Thought Process: Intact, Goal Oriented Thought Disorder: Not Present Hallucinations: Denies Suicidal Ideation: Denies Homicidal Ideation: Denies Insight/Judgement: Poor Sleep: Poorly Appetite: Fair Muscle strength/Tone: Normal Gait/Station: Normal Psychiatric Findings - Problem List ([place] 1, 2,3) (1) Substance induced mood disorder Current Visit: Yes Status: Acute (2) Substance-induced sleep disorder Current Visit: Yes Status: Acute (3) Uncomplicated opioid dependence Current Visit: Yes Status: Acute (4) Nicotine dependence Current Visit: Yes Status: Chronic (5) Diabetes mellitus type 1, uncontrolled, insulin dependent Current Visit: Yes Status: Chronic Comment: Once again, pt has not presented medications and previous provider's reports are not available. Recent diagnosis (x-rays) reveal degenerative changes in L-spin, bilateral knees along with bi-partite patella. Pt appears to have a left inquinal hernia and cardiology (Hx CABG) visit is pending (6) HTN (hypertension) Current Visit: Yes Status: Chronic (7) CAD (coronary artery disease) Current Visit: Yes Status: Chronic (8) CHF (congestive heart failure) Current Visit: Yes Status: Chronic (9) CVA (cerebral vascular accident) Current Visit: Yes Status: Resolved (10) Bronchial asthma Current Visit: Yes Status: Chronic (11) S/P CABG (coronary artery bypass graft) Current Visit: Yes Status: Acute - Initial Treatment Plan Initial Treatment Plan: 1) Continue Melatonin 5 mg po HS prn for insomnia. 2) Continue inpatient detoxification
[2019-04-10] MEDS ORDERED: METHADONE HCL 10 MG TABLET (FOR DETOX USE ONLY) ONE (08:59)
[2019-04-10] MEDS ORDERED: METHADONE HCL 5 MG TABLET (FOR DETOX USE ONLY) ONE (08:59)
[2019-04-10] MEDS ORDERED: METHADONE (DETOX) 20 MG, METHADONE (DETOX) 5 MG PO ONE (10:00)
[2019-04-10] MEDS: NICOTINE 14 MG/24 HOURS TOPICAL PATCH TD SCH (10:58)
[2019-04-10] MEDS: PRENATAL VITAMINS W/ FOLIC ACID TABLET (FP) PO SCH (10:58)
[2019-04-10] MEDS: metoPROLOL SUCCINATE 25 MG TAB.SR.24H (FP) PO SCH (10:59)
[2019-04-10] MEDS: SULFAMETHOXAZOLE/TRIMETHOPRIM 800MG/160MG D.S. TABLET PO SCH ×2 (10:59→21:06)
[2019-04-10] MEDS: TOLNAFTATE 1% CREAM 15 GM TUBE TP SCH ×2 (11:03→21:06)
[2019-04-10] MEDS: guaiFENesin 200 MG/10 ML 10 ML UNIT-DOSE CUPS PO PRN (13:58)
[2019-04-10] MEDS ORDERED: AZITHROMYCIN 500 MG TABLET PO ONE (15:40)
--- NOTE | 2019-04-10 15:40 | PN ---
S COWS - Scale Resting Pulse: 0= [place] 80 or Below Sweatin= No chills or Flushing Restless Observation: 1= Difficult to Sit Still Pupil Size: 1= Pupils >than Normal Bone or Joint Aches: 1= Mild Discomfort Runny Nose/ Eye Tearin= Runny Nose/Eyes GI Upset > 30mins: 2= Nausea/Diarrhea Tremor Observation of Outstretched Hands: 2= Slight Tremor Visible Yawning Observation: 1= 1-2x During Session Anxiety or Irritability: 2=Irritable/Anxious Goose Flesh Skin: 0=Smooth Skin COWS Score: 12 S Progress Note (SOAP) Subjective: alert,irritable,anxious,interrupted sleep,tremor,pain in the body and back, coughing yellowish mucous Objective: 04/10/19 15:38 Vital Signs Temperature 97.7 F 04/10/19 13:55 Pulse Rate 77 04/10/19 13:55 Respiratory Rate 16 04/10/19 13:55 Blood Pressure 115/58 L 04/10/19 13:55 O2 Sat by Pulse Oximetry (%) 04/10/19 15:39 Laboratory Last Values WBC 6.3 K/mm3 (4.0-10.0) 04/09/19 11:30 RBC 4.53 M/mm3 (4.00-5.60) 04/09/19 11:30 Hgb 13.5 GM/dL (11.7-16.9) 04/09/19 11:30 Hct 40.3 % (35.4-49) 04/09/19 11:30 MCV 89.1 fl (80-96) 04/09/19 11:30 MCH 29.8 pg (25.7-33.7) 04/09/19 11:30 MCHC 33.4 g/dl (32.0-35.9) 04/09/19 11:30 RDW 14.6 % (11.9-15.9) 04/09/19 11:30 Plt Count 229 K/MM3 (134-434) 04/09/19 11:30 MPV 9.1 fl (7.5-11.1) 04/09/19 11:30 Sodium 134 mmol/L (136-145) L 04/09/19 11:30 Potassium 4.2 mmol/L (3.5-5.1) 04/09/19 11:30 Chloride 100 mmol/L (98-107) 04/09/19 11:30 Carbon Dioxide 27 mmol/L (21-32) 04/09/19 11:30 Anion Gap 7 MMOL/L (8-16) L 04/09/19 11:30 BUN 11.0 mg/dL (7-18) 04/09/19 11:30 Creatinine 0.8 mg/dL (0.55-1.3) 04/09/19 11:30 Est GFR (CKD-EPI)AfAm 105.64 04/09/19 11:30 Est GFR (CKD-EPI)NonAf 91.15 04/09/19 11:30 POC Glucometer 87 UNITS (80-120) 04/10/19 06:12 Random Glucose 237 mg/dL (74-106) H 04/09/19 11:30 Calcium 8.7 mg/dL (8.5-10.1) 04/09/19 11:30 Total Bilirubin 0.3 mg/dL (0.2-1) 04/09/19 11:30 AST 21 U/L (15-37) 04/09/19 11:30 ALT 25 U/L (13-61) 04/09/19 11:30 Alkaline Phosphatase 146 U/L (45-117) H 04/09/19 11:30 Total Protein 7.0 g/dl (6.4-8.2) 04/09/19 11:30 Albumin 3.1 g/dl (3.4-5.0) L 04/09/19 11:30 RPR Titer Nonreactive (NONREACTIVE) 04/09/19 11:30 HIV 1&2 Antibody Screen Cancelled 04/09/19 11:30 HIV P24 Antigen Cancelled 04/09/19 11:30 Assessment: 04/10/19 15:39 withdrawal symptom 04/10/19 15:40 bronchitis Plan: continue detox methadone regimen,zithromax for bronchitis
[2019-04-10] MEDS: FUROSEMIDE 20 MG TABLET (FP) PO SCH (15:43)
[2019-04-10] MEDS ORDERED: AZITHROMYCIN 250 MG TABLET PO ONE (16:00)
[2019-04-10] MEDS: INSULIN (LEVEMIR) 100 UNITS/ML UNITS SQ SCH (21:06)
[2019-04-10] MEDS: MELATONIN 5 MG TABLETS PO PRN (21:06)
[2019-04-10] MEDS: THIAMINE HCL 100 MG TABLET (FP) PO SCH (21:06)
[2019-04-11] MEDS: metFORMIN HCL 500 MG TABLET (FP) PO SCH ×2 (06:51→17:09)
[2019-04-11] MEDS: INSULIN (NOVOLOG) ASPART 100 UNITS/ML 10ML VIAL SQ SCH ×4 (07:59→22:44)
[2019-04-11] MEDS ORDERED: METHADONE HCL 10 MG TABLET (FOR DETOX USE ONLY) PO ONE (10:00)
[2019-04-11] MEDS: TOLNAFTATE 1% CREAM 15 GM TUBE TP SCH ×2 (11:40→22:37)
[2019-04-11] MEDS: NICOTINE 14 MG/24 HOURS TOPICAL PATCH TD SCH (11:40)
[2019-04-11] MEDS: SULFAMETHOXAZOLE/TRIMETHOPRIM 800MG/160MG D.S. TABLET PO SCH ×2 (11:41→22:33)
[2019-04-11] MEDS: metoPROLOL SUCCINATE 25 MG TAB.SR.24H (FP) PO SCH (11:41)
[2019-04-11] MEDS: FUROSEMIDE 20 MG TABLET (FP) PO SCH (11:41)
[2019-04-11] MEDS: AZITHROMYCIN 250 MG TABLET PO SCH (11:41)
[2019-04-11] MEDS: PRENATAL VITAMINS W/ FOLIC ACID TABLET (FP) PO SCH (11:42)
[2019-04-11] MEDS: guaiFENesin 200 MG/10 ML 10 ML UNIT-DOSE CUPS PO PRN ×3 (12:12→23:21)
--- NOTE | 2019-04-11 13:10 | PN ---
[facility] COWS - Scale Resting Pulse: 0= [place] 80 or Below Sweatin= No chills or Flushing Restless Observation: 1= Difficult to Sit Still Pupil Size: 0= Normal to Room Light Bone or Joint Aches: 1= Mild Discomfort Runny Nose/ Eye Tearin= Nasal Congestion GI Upset > 30mins: 1= Stomach Cramp Tremor Observation of Outstretched Hands: 1= Tremor [place], Not Seen Yawning Observation: 1= 1-2x During Session Anxiety or Irritability: 2=Irritable/Anxious Goose Flesh Skin: 0=Smooth Skin COWS Score: 8 S Progress Note (SOAP) Subjective: alert,irritable,anxious,interrupted sleep,pain in the body Objective: 04/11/19 13:08 Vital Signs Temperature 97.0 F L 04/11/19 08:55 Pulse Rate 79 04/11/19 08:55 Respiratory Rate 16 04/11/19 08:55 Blood Pressure 153/80 04/11/19 08:55 O2 Sat by Pulse Oximetry (%) 04/11/19 13:08 Laboratory Last Values WBC 6.3 K/mm3 (4.0-10.0) 04/09/19 11:30 RBC 4.53 M/mm3 (4.00-5.60) 04/09/19 11:30 Hgb 13.5 GM/dL (11.7-16.9) 04/09/19 11:30 Hct 40.3 % (35.4-49) 04/09/19 11:30 MCV 89.1 fl (80-96) 04/09/19 11:30 MCH 29.8 pg (25.7-33.7) 04/09/19 11:30 MCHC 33.4 g/dl (32.0-35.9) 04/09/19 11:30 RDW 14.6 % (11.9-15.9) 04/09/19 11:30 Plt Count 229 K/MM3 (134-434) 04/09/19 11:30 MPV 9.1 fl (7.5-11.1) 04/09/19 11:30 Sodium 134 mmol/L (136-145) L 04/09/19 11:30 Potassium 4.2 mmol/L (3.5-5.1) 02/12/20 11:30 Chloride 100 mmol/L (98-107) 04/09/19 11:30 Carbon Dioxide 27 mmol/L (21-32) 04/09/19 11:30 Anion Gap 7 MMOL/L (8-16) L 04/09/19 11:30 BUN 11.0 mg/dL (7-18) 04/09/19 11:30 Creatinine 0.8 mg/dL (0.55-1.3) 04/09/19 11:30 Est GFR (CKD-EPI)AfAm 105.64 04/09/19 11:30 Est GFR (CKD-EPI)NonAf 91.15 04/09/19 11:30 POC Glucometer 80 UNITS (80-120) 04/11/19 12:10 Random Glucose 237 mg/dL (74-106) H 04/09/19 11:30 Calcium 8.7 mg/dL (8.5-10.1) 04/09/19 11:30 Total Bilirubin 0.3 mg/dL (0.2-1) 04/09/19 11:30 AST 21 U/L (15-37) 04/09/19 11:30 ALT 25 U/L (13-61) 04/09/19 11:30 Alkaline Phosphatase 146 U/L (45-117) H 04/09/19 11:30 Total Protein 7.0 g/dl (6.4-8.2) 04/09/19 11:30 Albumin 3.1 g/dl (3.4-5.0) L 04/09/19 11:30 RPR Titer Nonreactive (NONREACTIVE) 04/09/19 11:30 HIV 1&2 Ag/Ab, 4th Gen Non reactive (Non Reactive) 04/09/19 10:00 HIV 1&2 Antibody Screen Cancelled 04/09/19 11:30 HIV P24 Antigen Cancelled 04/09/19 11:30 Assessment: 04/11/19 13:10 withdrawal symptom Plan: continue detox methadone regimen,bgm monitoring,
[2019-04-11] MEDS ORDERED: INSULIN SLIDING SCALE (NOVOLOG) 1 VIAL SQ ONE (17:04)
[2019-04-11] MEDS: INSULIN (LEVEMIR) 100 UNITS/ML UNITS SQ SCH ×2 (22:36→23:21)
[2019-04-11] MEDS: THIAMINE HCL 100 MG TABLET (FP) PO SCH (22:37)
[2019-04-11] MEDS ORDERED: SULFAMETHOXAZOLE/TRIMETHOPRIM 800MG/160MG D.S. TABLET PO ONE (23:16)
--- NOTE | 2019-04-11 23:16 | PN ---
S Progress Note Note: per nursing, pt refused Bactrim DS evening dose and now is requesting it . one-time order for Bactrim DS entered.
[2019-04-12] MEDS: hydrOXYzine PAMOATE 25 MG CAPSULE (FP) PO PRN (06:07)
[2019-04-12] MEDS: metFORMIN HCL 500 MG TABLET (FP) PO SCH ×2 (06:15→16:59)
[2019-04-12] MEDS: INSULIN (NOVOLOG) ASPART 100 UNITS/ML 10ML VIAL SQ SCH ×3 (07:18→17:00)
[2019-04-12] MEDS ORDERED: METHADONE HCL 10 MG TABLET (FOR DETOX USE ONLY) ONE (09:42)
[2019-04-12] MEDS ORDERED: METHADONE HCL 5 MG TABLET (FOR DETOX USE ONLY) ONE (09:42)
[2019-04-12] MEDS ORDERED: METHADONE (DETOX) 10 MG, METHADONE (DETOX) 5 MG PO ONE (10:00)
[2019-04-12] MEDS: AZITHROMYCIN 250 MG TABLET PO SCH (11:00)
[2019-04-12] MEDS: metoPROLOL SUCCINATE 25 MG TAB.SR.24H (FP) PO SCH (11:01)
[2019-04-12] MEDS: FUROSEMIDE 20 MG TABLET (FP) PO SCH (11:01)
[2019-04-12] MEDS: SULFAMETHOXAZOLE/TRIMETHOPRIM 800MG/160MG D.S. TABLET PO SCH (11:02)
[2019-04-12] MEDS ORDERED: INSULIN SLIDING SCALE (NOVOLOG) 1 VIAL SQ ONE ×2 (11:07→16:52)
[2019-04-12] MEDS: NICOTINE 14 MG/24 HOURS TOPICAL PATCH TD SCH (11:09)
[2019-04-12] MEDS: PRENATAL VITAMINS W/ FOLIC ACID TABLET (FP) PO SCH (11:55)
[2019-04-12] MEDS: TOLNAFTATE 1% CREAM 15 GM TUBE TP SCH ×2 (11:56→21:31)
--- NOTE | 2019-04-12 12:17 | PN ---
[facility] COWS - Scale Resting Pulse: 1= [place] 81-100 Sweatin= Chills/Flushing Restless Observation: 1= Difficult to Sit Still Pupil Size: 1= Pupils >than Normal Bone or Joint Aches: 1= Mild Discomfort Runny Nose/ Eye Tearin= Nasal Congestion GI Upset > 30mins: 1= Stomach Cramp Tremor Observation of Outstretched Hands: 1= Tremor [place], Not Seen Yawning Observation: 1= 1-2x During Session Anxiety or Irritability: 1=Feels Anxious/Irritable Goose Flesh Skin: 0=Smooth Skin COWS Score: 10 BHS Progress Note (SOAP) Subjective: Pt admitted for OUD. with h/o HTN, DM and cellulitis. Has no complaints today. O: Vital Signs - 24 hr 04/11/19 04/11/19 04/11/19 13:52 17:04 20:23 Temperature 97.7 F 97.9 F 97.9 F Pulse Rate 69 73 74 Respiratory 16 17 18 Rate Blood Pressure 130/71 138/71 125/75 04/12/19 04/12/19 04/12/19 00:45 04:27 06:03 Temperature 98.1 F Pulse Rate 70 Respiratory 18 18 1 L Rate Blood Pressure 130/70 04/12/19 10:06 Temperature 97.9 F Pulse Rate 82 Respiratory 17 Rate Blood Pressure 126/67 Laboratory Tests 04/09/19 04/09/19 04/09/19 10:00 10:37 11:30 WBC RBC Hgb Hct MCV MCH MCHC RDW Plt Count MPV Sodium Potassium Chloride Carbon Dioxide Anion Gap BUN Creatinine Est GFR (CKD-EPI)AfAm Est GFR (CKD-EPI)NonAf POC Glucometer 242 Random Glucose Calcium Total Bilirubin AST ALT Alkaline Phosphatase Total Protein Albumin RPR Titer HIV 1&2 Ag/Ab, 4th Gen Non reactive HIV 1&2 Antibody Screen Cancelled HIV P24 Antigen Cancelled 04/09/19 04/09/19 04/09/19 11:30 11:30 11:30 WBC 6.3 RBC 4.53 Hgb 13.5 Hct 40.3 MCV 89.1 MCH 29.8 MCHC 33.4 RDW 14.6 Plt Count 229 MPV 9.1 Sodium 134 L Potassium 4.2 Chloride 100 Carbon Dioxide 27 Anion Gap 7 L BUN 11.0 Creatinine 0.8 Est GFR (CKD-EPI)AfAm 105.64 Est GFR (CKD-EPI)NonAf 91.15 POC Glucometer Random Glucose 237 H Calcium 8.7 Total Bilirubin 0.3 AST 21 ALT 25 Alkaline Phosphatase 146 H Total Protein 7.0 Albumin 3.1 L RPR Titer Nonreactive HIV 1&2 Ag/Ab, 4th Gen HIV 1&2 Antibody Screen HIV P24 Antigen 04/09/19 04/09/19 04/10/19 16:48 21:12 06:12 WBC RBC Hgb Hct MCV MCH MCHC RDW Plt Count MPV Sodium Potassium Chloride Carbon Dioxide Anion Gap BUN Creatinine Est GFR (CKD-EPI)AfAm Est GFR (CKD-EPI)NonAf POC Glucometer [phone] 87 Random Glucose Calcium Total Bilirubin AST ALT Alkaline Phosphatase Total Protein Albumin RPR Titer HIV 1&2 Ag/Ab, 4th Gen HIV 1&2 Antibody Screen HIV P24 Antigen 04/10/19 04/11/19 04/11/19 21:02 05:51 12:10 WBC RBC Hgb Hct MCV MCH MCHC RDW Plt Count MPV Sodium Potassium Chloride Carbon Dioxide Anion Gap BUN Creatinine Est GFR (CKD-EPI)AfAm Est GFR (CKD-EPI)NonAf POC Glucometer [phone] 80 Random Glucose Calcium Total Bilirubin AST ALT Alkaline Phosphatase Total Protein Albumin RPR Titer HIV 1&2 Ag/Ab, 4th Gen HIV 1&2 Antibody Screen HIV P24 Antigen 04/11/19 04/11/19 04/12/19 16:52 23:19 06:10 WBC RBC Hgb Hct MCV MCH MCHC RDW Plt Count MPV Sodium Potassium Chloride Carbon Dioxide Anion Gap BUN Creatinine Est GFR (CKD-EPI)AfAm Est GFR (CKD-EPI)NonAf POC Glucometer 368 338 96 Random Glucose Calcium Total Bilirubin AST ALT Alkaline Phosphatase Total Protein Albumin RPR Titer HIV 1&2 Ag/Ab, 4th Gen HIV 1&2 Antibody Screen HIV P24 Antigen 04/12/19 10:59 WBC RBC Hgb Hct MCV MCH MCHC RDW Plt Count MPV Sodium Potassium Chloride Carbon Dioxide Anion Gap BUN Creatinine Est GFR (CKD-EPI)AfAm Est GFR (CKD-EPI)NonAf POC Glucometer 315 Random Glucose Calcium Total Bilirubin AST ALT Alkaline Phosphatase Total Protein Albumin RPR Titer HIV 1&2 Ag/Ab, 4th Gen HIV 1&2 Antibody Screen HIV P24 Antigen PE- leg cellulitis resolved a/p OUD- on methadone detox. to consider meterman MAT DM/HTN- on meds Cellutlis- d/c'd bactrim pt on zithromax for URI started 2 days ago
[2019-04-12] MEDS: INSULIN (LEVEMIR) 100 UNITS/ML UNITS SQ SCH (21:15)
[2019-04-12] MEDS: THIAMINE HCL 100 MG TABLET (FP) PO SCH (21:16)
[2019-04-12] MEDS: MELATONIN 5 MG TABLETS PO PRN (21:16)
[2019-04-12] MEDS: guaiFENesin 200 MG/10 ML 10 ML UNIT-DOSE CUPS PO PRN (21:18)
[2019-04-13] MEDS: metFORMIN HCL 500 MG TABLET (FP) PO SCH ×2 (06:09→16:38)
[2019-04-13] MEDS: INSULIN (NOVOLOG) ASPART 100 UNITS/ML 10ML VIAL SQ SCH ×3 (06:12→16:39)
[2019-04-13] MEDS ORDERED: INSULIN SLIDING SCALE (NOVOLOG) 1 VIAL SQ ONE ×3 (06:12→16:35)
[2019-04-13] MEDS ORDERED: METHADONE HCL 10 MG TABLET (FOR DETOX USE ONLY) PO ONE (10:00)
[2019-04-13] MEDS: PRENATAL VITAMINS W/ FOLIC ACID TABLET (FP) PO SCH (10:34)
[2019-04-13] MEDS: FUROSEMIDE 20 MG TABLET (FP) PO SCH (10:34)
[2019-04-13] MEDS: hydrOXYzine PAMOATE 25 MG CAPSULE (FP) PO PRN (10:34)
[2019-04-13] MEDS: metoPROLOL SUCCINATE 25 MG TAB.SR.24H (FP) PO SCH (10:34)
[2019-04-13] MEDS: NICOTINE 14 MG/24 HOURS TOPICAL PATCH TD SCH (10:34)
[2019-04-13] MEDS: AZITHROMYCIN 250 MG TABLET PO SCH (10:35)
[2019-04-13] MEDS: TOLNAFTATE 1% CREAM 15 GM TUBE TP SCH ×2 (10:35→22:31)
[2019-04-13] MEDS: guaiFENesin 200 MG/10 ML 10 ML UNIT-DOSE CUPS PO PRN ×2 (11:56→21:09)
--- NOTE | 2019-04-13 13:30 | PN ---
[facility] COWS - Scale Resting Pulse: 0= [place] 80 or Below Sweatin= Chills/Flushing Restless Observation: 0= Sits Still Pupil Size: 0= Normal to Room Light Bone or Joint Aches: 1= Mild Discomfort Runny Nose/ Eye Tearin= None GI Upset > 30mins: 0= None Tremor Observation of Outstretched Hands: 2= Slight Tremor Visible Yawning Observation: 0= None Anxiety or Irritability: 1=Feels Anxious/Irritable Goose Flesh Skin: 0=Smooth Skin COWS Score: 5 BHS Progress Note (SOAP) Subjective: Patient c/o chills, mild shakes, sweats. Admitted for opiod dependence. Objective: 04/13/19 13:29 Vital Signs Temperature 97.9 F 04/13/19 11:47 Pulse Rate 80 04/13/19 11:47 Respiratory Rate 18 04/13/19 11:47 Blood Pressure 142/71 04/13/19 11:47 O2 Sat by Pulse Oximetry (%) Laboratory Tests 04/09/19 04/09/19 04/09/19 10:00 10:37 11:30 WBC RBC Hgb Hct MCV MCH MCHC RDW Plt Count MPV Sodium Potassium Chloride Carbon Dioxide Anion Gap BUN Creatinine Est GFR (CKD-EPI)AfAm Est GFR (CKD-EPI)NonAf POC Glucometer 242 Random Glucose Calcium Total Bilirubin AST ALT Alkaline Phosphatase Total Protein Albumin RPR Titer HIV 1&2 Ag/Ab, 4th Gen Non reactive HIV 1&2 Antibody Screen Cancelled HIV P24 Antigen Cancelled 04/09/19 04/09/19 04/09/19 11:30 11:30 11:30 WBC 6.3 RBC 4.53 Hgb 13.5 Hct 40.3 MCV 89.1 MCH 29.8 MCHC 33.4 RDW 14.6 Plt Count 229 MPV 9.1 Sodium 134 L Potassium 4.2 Chloride 100 Carbon Dioxide 27 Anion Gap 7 L BUN 11.0 Creatinine 0.8 Est GFR (CKD-EPI)AfAm 105.64 Est GFR (CKD-EPI)NonAf 91.15 POC Glucometer Random Glucose 237 H Calcium 8.7 Total Bilirubin 0.3 AST 21 ALT 25 Alkaline Phosphatase 146 H Total Protein 7.0 Albumin 3.1 L RPR Titer Nonreactive HIV 1&2 Ag/Ab, 4th Gen HIV 1&2 Antibody Screen HIV P24 Antigen 04/09/19 04/09/19 04/10/19 16:48 21:12 06:12 WBC RBC Hgb Hct MCV MCH MCHC RDW Plt Count MPV Sodium Potassium Chloride Carbon Dioxide Anion Gap BUN Creatinine Est GFR (CKD-EPI)AfAm Est GFR (CKD-EPI)NonAf POC Glucometer 347 375 87 Random Glucose Calcium Total Bilirubin AST ALT Alkaline Phosphatase Total Protein Albumin RPR Titer HIV 1&2 Ag/Ab, 4th Gen HIV 1&2 Antibody Screen HIV P24 Antigen 04/10/19 04/11/19 04/11/19 21:02 05:51 12:10 WBC RBC Hgb Hct MCV MCH MCHC RDW Plt Count MPV Sodium Potassium Chloride Carbon Dioxide Anion Gap BUN Creatinine Est GFR (CKD-EPI)AfAm Est GFR (CKD-EPI)NonAf POC Glucometer 417 408 80 Random Glucose Calcium Total Bilirubin AST ALT Alkaline Phosphatase Total Protein Albumin RPR Titer HIV 1&2 Ag/Ab, 4th Gen HIV 1&2 Antibody Screen HIV P24 Antigen 04/11/19 04/11/19 04/12/19 16:52 23:19 06:10 WBC RBC Hgb Hct MCV MCH MCHC RDW Plt Count MPV Sodium Potassium Chloride Carbon Dioxide Anion Gap BUN Creatinine Est GFR (CKD-EPI)AfAm Est GFR (CKD-EPI)NonAf POC Glucometer 368 338 96 Random Glucose Calcium Total Bilirubin AST ALT Alkaline Phosphatase Total Protein Albumin RPR Titer HIV 1&2 Ag/Ab, 4th Gen HIV 1&2 Antibody Screen HIV P24 Antigen 04/12/19 04/12/19 04/12/19 10:59 16:32 20:25 WBC RBC Hgb Hct MCV MCH MCHC RDW Plt Count MPV Sodium Potassium Chloride Carbon Dioxide Anion Gap BUN Creatinine Est GFR (CKD-EPI)AfAm Est GFR (CKD-EPI)NonAf POC Glucometer 315 317 188 Random Glucose Calcium Total Bilirubin AST ALT Alkaline Phosphatase Total Protein Albumin RPR Titer HIV 1&2 Ag/Ab, 4th Gen HIV 1&2 Antibody Screen HIV P24 Antigen 04/13/19 04/13/19 06:07 11:50 WBC RBC Hgb Hct MCV MCH MCHC RDW Plt Count MPV Sodium Potassium Chloride Carbon Dioxide Anion Gap BUN Creatinine Est GFR (CKD-EPI)AfAm Est GFR (CKD-EPI)NonAf POC Glucometer 216 320 Random Glucose Calcium Total Bilirubin AST ALT Alkaline Phosphatase Total Protein Albumin RPR Titer HIV 1&2 Ag/Ab, 4th Gen HIV 1&2 Antibody Screen HIV P24 Antigen Vital Signs Temperature 97.9 F 04/13/19 11:47 Pulse Rate 80 04/13/19 11:47 Respiratory Rate 18 04/13/19 11:47 Blood Pressure 142/71 04/13/19 11:47 O2 Sat by Pulse Oximetry (%) PE alert and oriented x 3 skin warm, mild facial moisture in no acute distress ext mild tremors felt, amb ad cristi mild anxiety Assessment: 04/13/19 13:30 Opiod withdrawal sx Plan: continue detox for d/c in am
[2019-04-13] MEDS: MELATONIN 5 MG TABLETS PO PRN (21:09)
[2019-04-13] MEDS: THIAMINE HCL 100 MG TABLET (FP) PO SCH (21:09)
[2019-04-13] MEDS: INSULIN (LEVEMIR) 100 UNITS/ML UNITS SQ SCH (22:31)
[2019-04-13 23:48] VITALS: BP 108/62; PULSE 91; TEMP 98.2
[2019-04-14] MEDS ORDERED: METHADONE HCL 5 MG TABLET (FOR DETOX USE ONLY) PO ONE (06:00)
[2019-04-14] MEDS: metFORMIN HCL 500 MG TABLET (FP) PO SCH (06:01)
[2019-04-14] MEDS: INSULIN (NOVOLOG) ASPART 100 UNITS/ML 10ML VIAL SQ SCH (06:02)
--- NOTE | 2019-04-14 10:23 | PN ---
BHS COWS - Scale Resting Pulse: 0= GA 80 or Below Sweatin= No chills or Flushing Restless Observation: 0= Sits Still Pupil Size: 0= Normal to Room Light Bone or Joint Aches: 0= None Runny Nose/ Eye Tearin= None GI Upset > 30mins: 0= None Tremor Observation of Outstretched Hands: 0= None Yawning Observation: 0= None Anxiety or Irritability: 1=Feels Anxious/Irritable Goose Flesh Skin: 0=Smooth Skin COWS Score: 1 BHS Progress Note (SOAP) Subjective: alert,no complaint Objective: 04/14/19 10:20 Vital Signs Temperature 98.2 F 04/13/19 21:05 Pulse Rate 91 H 04/13/19 21:05 Respiratory Rate 18 04/14/19 03:39 Blood Pressure 108/62 04/13/19 21:05 O2 Sat by Pulse Oximetry (%) Assessment: 04/14/19 10:20 detox completed,no withdrawal symptom Plan: discharge today,decline to go to [address] [place] [id number],[facility],stated will go to [facility] by himself
--- NOTE | 2019-04-14 10:24 | DS ---
[facility] Detox Discharge Summary Admission Date: 04/09/19 Discharge Date: 04/14/19 - History Present History: Opioid Dependence Additional Comments: alert,oriented x 3 heart normal heart sound lung clear,no wheezing ambulation on the unit no abdominal pain stable for discharge patient decline to go to [facility] will go to [facility] time spendin on discharge 35 mins Pertinent Past History: iddm cad s/p by pass graft cva chf - Physical Exam Results Vital Signs: Vital Signs Temperature 98.2 F 04/13/19 21:05 Pulse Rate 91 H 04/13/19 21:05 Respiratory Rate 18 04/14/19 03:39 Blood Pressure 108/62 04/13/19 21:05 O2 Sat by Pulse Oximetry (%) Pertinent Admission Physical Exam Findings: withdrawal signs and symptom Vital Signs Temperature 98.2 F 04/13/19 21:05 Pulse Rate 91 H 04/13/19 21:05 Respiratory Rate 18 04/14/19 03:39 Blood Pressure 108/62 04/13/19 21:05 O2 Sat by Pulse Oximetry (%) Laboratory Last Values WBC 6.3 K/mm3 (4.0-10.0) 04/09/19 11:30 RBC 4.53 M/mm3 (4.00-5.60) 04/09/19 11:30 Hgb 13.5 GM/dL (11.7-16.9) 04/09/19 11:30 Hct 40.3 % (35.4-49) 04/09/19 11:30 MCV 89.1 fl (80-96) 04/09/19 11:30 MCH 29.8 pg (25.7-33.7) 04/09/19 11:30 MCHC 33.4 g/dl (32.0-35.9) 04/09/19 11:30 RDW 14.6 % (11.9-15.9) 04/09/19 11:30 Plt Count 229 K/MM3 (134-434) 04/09/19 11:30 MPV 9.1 fl (7.5-11.1) 04/09/19 11:30 Sodium 134 mmol/L (136-145) L 04/09/19 11:30 Potassium 4.2 mmol/L (3.5-5.1) 04/09/19 11:30 Chloride 100 mmol/L (98-107) 04/09/19 11:30 Carbon Dioxide 27 mmol/L (21-32) 04/09/19 11:30 Anion Gap 7 MMOL/L (8-16) L 04/09/19 11:30 BUN 11.0 mg/dL (7-18) 04/09/19 11:30 Creatinine 0.8 mg/dL (0.55-1.3) 04/09/19 11:30 Est GFR (CKD-EPI)AfAm 105.64 04/09/19 11:30 Est GFR (CKD-EPI)NonAf 91.15 04/09/19 11:30 POC Glucometer 151 UNITS (80-120) 04/14/19 05:59 Random Glucose 237 mg/dL (74-106) H 04/09/19 11:30 Calcium 8.7 mg/dL (8.5-10.1) 04/09/19 11:30 Total Bilirubin 0.3 mg/dL (0.2-1) 04/09/19 11:30 AST 21 U/L (15-37) 04/09/19 11:30 ALT 25 U/L (13-61) 04/09/19 11:30 Alkaline Phosphatase 146 U/L (45-117) H 04/09/19 11:30 Total Protein 7.0 g/dl (6.4-8.2) 04/09/19 11:30 Albumin 3.1 g/dl (3.4-5.0) L 04/09/19 11:30 RPR Titer Nonreactive (NONREACTIVE) 04/09/19 11:30 HIV 1&2 Ag/Ab, 4th Gen Non reactive (Non Reactive) 04/09/19 10:00 HIV 1&2 Antibody Screen Cancelled 04/09/19 11:30 HIV P24 Antigen Cancelled 04/09/19 11:30 - Treatment Hospital Course: Detox Protocol Followed, Detoxed Safely, Responded well, Discharged Condition Good, Rehab Referral Accepted Patient has Accepted a Rehab Referral to: [facility] - Medication Discharge Medications: Ambulatory Orders Bacitracin - [Bacitracin Topical Ointment -] 1 applic TP BID 04/09/19 Furosemide [Lasix] 20 mg PO DAILY 04/09/19 Insulin Glargine,Hum.rec.anlog [Basaglar Kwikpen U-100] 15 unit SQ HS 04/09/19 Metformin HCl [Glucophage] 500 mg PO BID 04/09/19 Metoprolol Succinate [Toprol Xl -] 12.5 mg PO DAILY 04/09/19 Terbinafine HCl 250 mg PO DAILY 04/09/19 Tramadol HCl 50 mg PO PRN PRN 04/09/19 - Diagnosis (1) Opioid dependence with withdrawal Current Visit: Yes Status: Acute (2) Cellulitis Current Visit: Yes Status: Acute Qualifiers: Site of cellulitis: extremity Site of cellulitis of extremity: lower extremity Laterality: right Qualified Code(s): L03.115 - Cellulitis of right lower limb (3) Type 2 diabetes mellitus with diabetic nephropathy Current Visit: Yes Status: Acute (4) Bronchial asthma Current Visit: Yes Status: Chronic (5) HTN (hypertension) Current Visit: Yes Status: Chronic (6) Hepatitis C antibody positive in blood Current Visit: Yes Status: Chronic (7) Nicotine dependence Current Visit: Yes Status: Chronic (8) IDDM (insulin dependent diabetes mellitus) Current Visit: Yes Status: Acute - AMA Did Patient Leave Against Medical Advice: No
== END 2019-04-14 10:16 | disposition home or self-care (01) | DRG 897 ==
LOC: YASAS 09:06 → Y6N 10:58
PROVIDERS: ADMIT Allergy & Immunology; ATTEND Allergy & Immunology
PROC: HZ2ZZZZ Detoxification Services for Substance Abuse Treatment (ICD-10-PCS; principal; 2019-04-09)
DX: F11.23 Opioid dependence with withdrawal (principal); F19.282 Other psychoactive substance dependence with psychoactive substance-induced sleep disorder; L03.115 Cellulitis of right lower limb; F17.210 Nicotine dependence, cigarettes, uncomplicated; F19.24 Other psychoactive substance dependence with psychoactive substance-induced mood disorder; J45.998 Other asthma; I25.10 Atherosclerotic heart disease of native coronary artery without angina pectoris; I11.0 Hypertensive heart disease with heart failure; Z95.1 Presence of aortocoronary bypass graft; Z95.5 Presence of coronary angioplasty implant and graft; I50.9 Heart failure, unspecified; E11.22 Type 2 diabetes mellitus with diabetic chronic kidney disease; Z79.4 Long term (current) use of insulin; R76.8 Other specified abnormal immunological findings in serum; J40 Bronchitis, not specified as acute or chronic; Z79.2 Long term (current) use of antibiotics; Z86.73 Personal history of transient ischemic attack (TIA), and cerebral infarction without residual deficits; Z91.013 Allergy to seafood; Z91.018 Allergy to other foods; Z59.0 Homelessness
CPT/HCPCS: 36415; 80053; 82962; 85027; 86593; 87389

== ENCOUNTER 2019-11-09 04:35 | Emergency (ER) | payer OTHER ==
[2019-11-09 04:46] VITALS: BMI 21.4
--- NOTE | 2019-11-09 05:33 | PDOC ---
History of Present Illness - General Chief Complaint: Pain Stated Complaint: L ARM PAIN S/P SURGERY Time Seen by Provider: 11/09/19 05:33 History Source: Patient, Old Records Exam Limitations: No Limitations - History of Present Illness Initial Comments: 11/09/19 05:33 Anand Maravilla is a 68M with PMH DM, HTN, CHF, COPD, ashtma, AFIB, cirrhosis, opiate use disorder, presenting with hand pain after surgery. Past History - Medical History Allergies/Adverse Reactions: Allergies Allergy/AdvReac Type Severity Reaction Status Date / Time Penicillins Allergy Intermediate Rash Verified 11/09/19 04:45 shellfish derived Allergy Intermediate Rash Verified 11/09/19 04:45 tomato Allergy Intermediate Rash Verified 11/09/19 04:45 Home Medications: Ambulatory Orders Bacitracin - [Bacitracin Topical Ointment -] 1 applic TP BID 04/09/19 Insulin Glargine,Hum.rec.anlog [Basaglar Kwikpen U-100] 15 unit SQ HS 04/09/19 Metformin HCl [Glucophage] 500 mg PO BID 04/09/19 Terbinafine HCl 250 mg PO DAILY 04/09/19 Naloxone HCl [Narcan] 4 mg NS ONCE PRN #1 spray 04/15/19 Guaifenesin [Mucinex -] 600 mg PO BID #14 tablet.er 04/28/19 Aspirin 81 mg PO DAILY 05/09/19 Nebulizer [Compact Compressor Nebulizer] 1 each MC Q4H PRN #1 each 05/09/19 Albuterol Sulfate Inhaler - [Ventolin HFA Inhaler -] 2 inh PO Q4H PRN #1 inh 05/22/19 Blood Pressure Kit MarlonLarge [Gnp Blood Pressure Monitor] 1 each MC DAILY #1 kit 05/22/19 Budesonide/Formeterol Fumarate [SYMBICORT 80/4.5mcg -] 1 inh PO BID #1 cannister 05/22/19 Furosemide [Lasix] 20 mg PO DAILY #30 tablet 05/22/19 Metoprolol Succinate [Toprol XL -] 25 mg PO DAILY #30 tab.sr 05/22/19 Nicotine [Nicotine Patch 14mg/24 hr] 1 each TD DAILY #30 patch.td24 08/01/19 Buprenorphine/Naloxone [Suboxone 8Mg/2Mg Sl Film -] 2 each SL DAILY #60 packet MDD 2 10/02/19 Docusate Sodium [Colace -] 100 mg PO TID #90 capsule 10/02/19 Anemia: No Asthma: Yes Cancer: No Cardiac Disorders: Yes (CABG in 2015) CVA: No COPD: No CHF: No Dementia: No Diabetes: Yes (Pt states under control, refuse BGL check) GI Disorders: No Disorders: No HTN: Yes Kidney Stones: No Liver Disease: No Seizures: No Thyroid Disease: No - Surgical History Abdominal Surgery: No Appendectomy: No Cardiac Surgery: Yes (CABG 2015) Cholecystectomy: No Lung Surgery: No Neurologic Surgery: No Orthopedic Surgery: No - Reproductive History Testicular Surgery: No - Psycho-Social/Smoking History Smoking History: Current some day smoker Have you smoked in the past 12 months: Yes Number of Cigarettes Smoked Daily: 12 Cigars Per Day: 0 Information on smoking cessation initiated: No 'Breaking Loose' booklet given: 04/15/19 - Substance Abuse Hx (Audit-C & DAST Scrn) How often the patient has a drink containing alcohol: Monthly or less Number of drinks the patient has on a typical day: 1 or 2 How often the patient has six or more drinks on one occasion: Less than monthly Score: In Men: 4 or > Positive; In Women: 3 or > Positive: 2 Screen Result (Pos requires Nsg. Audit-10AR): Negative In the last yr the pt used illegal drug/Rx for NonMed reason: No Score: Yes response is considered Positive: 0 Screen Result (Positive result requires Nsg. DAST-10): Negative *Physical Exam - Vital Signs Last Vital Signs Temp Pulse Resp BP Pulse Ox 98.3 F 100 H 20 132/81 98 11/09/19 04:40 11/09/19 04:40 11/09/19 04:40 11/09/19 04:40 11/09/19 04:40 Discharge - Follow up/Referral Referrals: Ernestine Alonso MD [Primary Care Provider] - - Patient Discharge Instructions - Post Discharge Activity
--- NOTE | 2019-11-09 07:46 | PDOC ---
History of Present Illness - General Chief Complaint: Pain Stated Complaint: L ARM PAIN S/P SURGERY Time Seen by Provider: 11/09/19 05:33 History Source: Patient Exam Limitations: No Limitations - History of Present Illness Initial Comments: 11/09/19 07:36 68M PMH HTN, CAD s/p CABG, DM, chronic HCV, opiate dependence on suboxone presenting to the ED for evaluation of left hand pain and swelling. Pt was admitted to [facility] 4 days for I&D of a left hand abscess subsequently left AMA because "they weren't doing anything" and came to this ED. Pt has diffuse swelling of the left hand and pain that limits his ability to use the hand. Endorses fevers 4 days ago. Pt adamantly denies any recent heroin injection but states he has multiple healed abscesses on his extremities. Also has two adjacent abscesses of the left lower leg of which he "popped" himself overnight with purulent drainage. Has an unknown reaction to PCNs. Pt is homeless and does not take any medications except suboxone obtained at clinic. No PMD. Past History - Medical History Allergies/Adverse Reactions: Allergies Allergy/AdvReac Type Severity Reaction Status Date / Time Penicillins Allergy Intermediate Rash Verified 11/09/19 04:45 shellfish derived Allergy Intermediate Rash Verified 11/09/19 04:45 tomato Allergy Intermediate Rash Verified 11/09/19 04:45 Home Medications: Ambulatory Orders Bacitracin - [Bacitracin Topical Ointment -] 1 applic TP BID 04/09/19 Insulin Glargine,Hum.rec.anlog [Basaglar Kwikpen U-100] 15 unit SQ HS 04/09/19 Metformin HCl [Glucophage] 500 mg PO BID 04/09/19 Terbinafine HCl 250 mg PO DAILY 04/09/19 Naloxone HCl [Narcan] 4 mg NS ONCE PRN #1 spray 04/15/19 Guaifenesin [Mucinex -] 600 mg PO BID #14 tablet.er 04/28/19 Aspirin 81 mg PO DAILY 05/09/19 Nebulizer [Compact Compressor Nebulizer] 1 each MC Q4H PRN #1 each 05/09/19 Albuterol Sulfate Inhaler - [Ventolin HFA Inhaler -] 2 inh PO Q4H PRN #1 inh 05/22/19 Blood Pressure Kit Med,Large [Gnp Blood Pressure Monitor] 1 each MC DAILY #1 kit 05/22/19 Budesonide/Formeterol Fumarate [SYMBICORT 80/4.5mcg -] 1 inh PO BID #1 cannister 05/22/19 Furosemide [Lasix] 20 mg PO DAILY #30 tablet 05/22/19 Metoprolol Succinate [Toprol XL -] 25 mg PO DAILY #30 tab.sr 05/22/19 Nicotine [Nicotine Patch 14mg/24 hr] 1 each TD DAILY #30 patch.td24 08/01/19 Buprenorphine/Naloxone [Suboxone 8Mg/2Mg Sl Film -] 2 each SL DAILY #60 packet MDD 2 10/02/19 Docusate Sodium [Colace -] 100 mg PO TID #90 capsule 10/02/19 Anemia: No Asthma: Yes Cancer: No Cardiac Disorders: Yes (CABG in 2015) CVA: No COPD: No CHF: No Dementia: No Diabetes: Yes (Pt states under control, refuse BGL check) GI Disorders: No Disorders: No HTN: Yes Kidney Stones: No Liver Disease: No Seizures: No Thyroid Disease: No - Surgical History Abdominal Surgery: No Appendectomy: No Cardiac Surgery: Yes (CABG 2015) Cholecystectomy: No Lung Surgery: No Neurologic Surgery: No Orthopedic Surgery: No - Reproductive History Testicular Surgery: No - Psycho-Social/Smoking History Smoking History: Current some day smoker Have you smoked in the past 12 months: Yes Number of Cigarettes Smoked Daily: 12 Cigars Per Day: 0 Information on smoking cessation initiated: No 'Breaking Loose' booklet given: 04/15/19 - Substance Abuse Hx (Audit-C & DAST Scrn) How often the patient has a drink containing alcohol: Monthly or less Number of drinks the patient has on a typical day: 1 or 2 How often the patient has six or more drinks on one occasion: Less than monthly Score: In Men: 4 or > Positive; In Women: 3 or > Positive: 2 Screen Result (Pos requires Nsg. Audit-10AR): Negative In the last yr the pt used illegal drug/Rx for NonMed reason: No Score: Yes response is considered Positive: 0 Screen Result (Positive result requires Nsg. DAST-10): Negative Review of Systems - Review of Systems Comments:: 11/09/19 09:25 CONSTITUTIONAL: Endorses prior fevers HEENT: Denies headache, changes in vision / hearing, sore throat, rhinorrhea RESP: Denies SOB, cough CARD: Denies chest pain, palpitations GI: Denies N / V / D, abdominal pain, inability to tolerate PO : Denies dysuria NEURO: Denies numbness, tingling, weakness MSK: endorses left hand and left leg pain; chronic unchanged back pain SKIN: endorses left hand and left leg wounds *Physical Exam - Vital Signs Last Vital Signs Temp Pulse Resp BP Pulse Ox 98.6 F 88 18 149/78 99 11/09/19 06:47 11/09/19 06:47 11/09/19 06:47 11/09/19 06:47 11/09/19 06:47 - Physical Exam 11/09/19 09:25 GEN: Disheveled, NAD, AAOx3. HEENT: NC/AT. No facial asymmetry. Normal voice. Supple neck w/ FROM. CV: S1/S2, RRR, no m/r/g LUNG: CTAB, no wheezes, crackles, rales, rhonchi. GI: Soft, ndnt, +BS, no guarding, no rebound. MSK: Left hand is nonerythematous, there is packing s/p previous I&D on the uln ar dorsal aspect of the hand, diffusely swollen and all fingers held in slight flexion; tender diffusely and with any passive ROM. Limited active ROM 2/2 pain and swelling. Sensation intact. Remainder of left UE w/o erythema or swelling. RUE w/o erythema, swelling; ROM wnl, sensation intact. LLE: two adjacent open and draining abscesses covering an area of approximately [id number] on the medial aspect of the calf w/o underlying erythema; serosanguinous drainage, non- fluctuant. RLE w/o erythema, swelling; ROM wnl, sensation intact SKIN: multiple old skin wounds overlying vasculature PSYCH: cooperative NEURO: Sensation symmetric; ambulates w/ normal gait. 5/5 strength of the UE b/l except unable to test left hand intrinsic muscles 2/2 pain and swelling. 5/5 strength of the LE b/l. ED Treatment Course - LABORATORY CBC & Chemistry Diagram: 11/09/19 08:26 11/09/19 08:26 Medical Decision Making - Medical Decision Making 11/09/19 09:25 68M w/ left hand pain and swelling s/p I&D at [facility] where he left AMA to come here. Diffuse swelling of the left hand which is held in passive flexion and with limited active ROM; tender with palpitation and passive ROM. Concern for flexor tenosynovitis and deep tissue infection. - CBC, CMP, BCX - Vancomycin and Meropenam - Pain control - Will require transfer to facility with Hand Surgery 11/09/19 08:50 Transfer initiated to [facility] Pt was endorsed to Dr. Drummond, Plastic Surgery ED Dr. Beatty notified too Transfer accepted for ED to ED Discharge - Discharge Information Problems reviewed: Yes Clinical Impression/Diagnosis: Swelling of left hand Cellulitis Qualifiers: Site of cellulitis: extremity Site of cellulitis of extremity: upper extremity Laterality: left Qualified Code(s): L03.114 - Cellulitis of left upper limb Condition: Stable Disposition: TRANSFER ACUTE CARE/OTHER HOSP - Follow up/Referral Referrals: Ernestine Alonso MD [Primary Care Provider] - - Patient Discharge Instructions - Post Discharge Activity
[2019-11-09] MEDS ORDERED: VANCOMYCIN 1 GM in D5W (PRE-DOCKED) 1,000 MG/250 ML IVPB ONE (07:47)
[2019-11-09] MEDS ORDERED: ACETAMINOPHEN 1000 MG/100 ML VIAL (NON FORMULARY) IVPB ONE (07:47)
[2019-11-09] MEDS ORDERED: VANCOMYCIN 1 GRAM (PRE-DOCKED) 1,000 MG/250 ML BAG IVPB ONE (08:30)
[2019-11-09] MEDS ORDERED: ACETAMINOPHEN INJECTION 100 ML IVPB ONE (08:30)
[2019-11-09 08:41] LABS: EOS % 2.8 % (0-4.5); HEMATOCRIT 35.5 % (35.4-49); HEMOGLOBIN 11.9 GM/dL (11.7-16.9); MCH 30.3 pg (25.7-33.7); MCHC 33.6 g/dl (32.0-35.9); MEAN PLT VOLUME 8.7 fl (7.5-11.1); MONO % 7.4 % (3.8-10.2); NEUT % 68.8 % (42.8-82.8); PLATELET COUNT 199 K/MM3 (134-434); RBC 3.94 M/mm3 (4.00-5.60); RDW 14.4 % (11.9-15.9); WHITE BLOOD COUNT 8.4 K/mm3 (4.0-10.0)
[2019-11-09] MEDS ORDERED: MEROPENEM 1 GM in DEXTROSE 5%-WATER 100 ML IVPB ONE (08:47)
--- NOTE | 2019-11-09 08:53 | PDOC ---
Attending Attestation - Resident Resident Name: Lavell Melvin - ED Attending Attestation I have performed the following: I have examined & evaluated the patient, The case was reviewed & discussed with the resident, I agree w/resident's findings & plan, Exceptions are as noted - HPI HPI: 11/09/19 08:48 68M PMH HTN, CAD s/p CABG, DM, chronic HCV, opiate dependence on suboxone presenting to the EDWith worsening infection to his left hand. Patient is status post incision and drainage of an abscess at [facility] to the thenar of his left hand that is packed. He was on antibiotics. He did decided to sign out against AMA. He denies any recent IV drug use however there are multiple davison on his body and several other abscesses particularly to his left lower extremity. Hand is painful with decreased range of motion it is warm to touch. He is complaining of 8 out of 10 pain worse with movement persistent constant - Physicial Exam PE: 11/09/19 08:53 Vitals: Triage Vital signs reviewed General Appearance: No acute distress, well nourished well developed, Head: Atraumatic, Cardiac: Regular rate and rhythym, Abdomen: Soft, non distended, normal bowel sounds, non tender to palpation Extremities: Decreased range of motion to left hand. Warm to touch, swollen, packing in place to thenar eminence Skin: Warm to touch left hand, several healed and small abscesses to left mandujano. Psych: Normal mood, normal affect - Medical Decision Making 11/09/19 08:Worsening hand infection and former IVDU Recently on antibiotics We will treat empirically with meropenem and vancomycin given penicillin allergy Unfortunately we do not have hand surgery available at our hospital. Patient will require transfer to tertiary care center with hand availability Patient requested [facility] Patient accepted. Dr. Anderson accepting physician Discharge - Discharge Information Problems reviewed: Yes Clinical Impression/Diagnosis: Cellulitis Qualifiers: Site of cellulitis: extremity Site of cellulitis of extremity: upper extremity Laterality: left Qualified Code(s): L03.114 - Cellulitis of left upper limb - Follow up/Referral Referrals: Ernestine Alonso MD [Primary Care Provider] - - Patient Discharge Instructions - Post Discharge Activity
[2019-11-09 09:05] LABS: ALBUMIN 2.5 g/dl (3.4-5.0); BILIRUBIN,TOTAL 0.3 mg/dL (0.2-1); BLOOD UREA NITROGEN 15.8 mg/dL (7-18); CALCIUM 8.7 mg/dL (8.5-10.1); CREATININE 1.1 mg/dL (0.55-1.3); POTASSIUM 4.9 mmol/L (3.5-5.1); TOT PROT 7.6 g/dl (6.4-8.2)
[2019-11-09 09:50] VITALS: BP 128/66; PULSE 64; TEMP 98.2
== END 2019-11-09 09:53 | disposition short-term general hospital (02) ==
LOC: JER 04:35
PROC: 3E03329 Introduction of Other Anti-infective into Peripheral Vein, Percutaneous Approach (ICD-10-PCS; principal; 2019-11-09)
PROC: 3E033GC Introduction of Other Therapeutic Substance into Peripheral Vein, Percutaneous Approach (ICD-10-PCS; 2019-11-09)
DX: L03.114 Cellulitis of left upper limb (principal)
CPT/HCPCS: 36415; 80053; 85025; 87040; 99284-25; J0131

== ENCOUNTER 2020-07-22 22:41 | Emergency (ER) | payer OTHER ==
[2020-07-22 23:02] VITALS: TEMP 98.6; BMI 24.2
[2020-07-23] MEDS ORDERED: ACETAMINOPHEN 1000 MG/100 ML VIAL (NON FORMULARY) IVPB ONE (01:26)
[2020-07-23 01:42] LABS: EOS % 2.2 % (0-4.5); HEMATOCRIT 37.8 % (35.4-49); HEMOGLOBIN 12.7 GM/dL (11.7-16.9); LYMPH % 24.7 % (8-40); MCH 29.8 pg (25.7-33.7); MCHC 33.5 g/dl (32.0-35.9); MEAN CELL VOLUME 88.9 fl (80-96); MEAN PLT VOLUME 8.3 fl (7.5-11.1); MONO % 10.2 % (3.8-10.2); NEUT % 61.9 % (42.8-82.8); PLATELET COUNT 226 K/MM3 (134-434); RBC 4.26 M/mm3 (4.00-5.60); RDW 15.3 % (11.9-15.9); WHITE BLOOD COUNT 8.1 K/mm3 (4.0-10.0)
[2020-07-23 01:47] LABS: INR 0.95 (0.83-1.09); PROTHROMBIN TIME (PATIENT) 11.5 SEC (9.7-13.0)
[2020-07-23 01:50] LABS: ACTIVATED PTT 31.5 SECONDS (25.2-36.5)
[2020-07-23 02:02] LABS: ALBUMIN 3.2 g/dl (3.4-5.0); BLOOD UREA NITROGEN 17.8 mg/dL (7-18); CALCIUM 8.5 mg/dL (8.5-10.1)
[2020-07-23 02:04] LABS: CREATININE 0.7 mg/dL (0.55-1.3)
[2020-07-23 02:05] LABS: BILIRUBIN,TOTAL 0.4 mg/dL (0.2-1); TOT PROT 7.8 g/dl (6.4-8.2)
[2020-07-23] MEDS ORDERED: ACETAMINOPHEN INJECTION 100 ML IVPB ONE (02:17)
[2020-07-23] MEDS ORDERED: DALBAVANCIN HCL 1,500 MG in DEXTROSE 5%-WATER - 500 ML IVPB ONE (03:01)
[2020-07-23] MEDS ORDERED: DALBAVANCIN HCL 500 MG VIAL (RESTRICTED TO ID ONLY) IVPB ONE (03:31)
[2020-07-23 05:19] VITALS: BP 139/68; PULSE 89
== END 2020-07-23 06:31 | disposition home or self-care (01) ==
LOC: JER 22:41
PROC: 3E0333Z Introduction of Anti-inflammatory into Peripheral Vein, Percutaneous Approach (ICD-10-PCS; principal; 2020-07-22)
PROC: 3E03329 Introduction of Other Anti-infective into Peripheral Vein, Percutaneous Approach (ICD-10-PCS; 2020-07-22)
DX: L03.116 Cellulitis of left lower limb (principal)
CPT/HCPCS: 36415; 80053; 85025; 85610; 85730; 93005; 93010; 93971-TC; 96374; 96375; 99285-25; J0131; J0875

== ENCOUNTER 2020-09-06 15:11 | Emergency (ER) | payer OTHER ==
[2020-09-06 15:22] VITALS: BP 133/71; PULSE 73; TEMP 98.2; BMI 23.6
[2020-09-06 17:21] LABS: INR 0.91 (0.83-1.09); PROTHROMBIN TIME (PATIENT) 11.1 SEC (9.7-13.0)
[2020-09-06 17:25] LABS: BASO % 0.8 % (0-2.0); EOS % 3.6 % (0-4.5); HEMATOCRIT 37.1 % (35.4-49); HEMOGLOBIN 12.6 GM/dL (11.7-16.9); LYMPH % 24.1 % (8-40); MCH 29.8 pg (25.7-33.7); MCHC 33.9 g/dl (32.0-35.9); MEAN CELL VOLUME 87.9 fl (80-96); MONO % 9.2 % (3.8-10.2); NEUT % 62.3 % (42.8-82.8); PLATELET COUNT 238 10^3/uL (134-434); RBC 4.22 M/mm3 (4.00-5.60); RDW 14.5 % (11.9-15.9); WHITE BLOOD COUNT 7.6 K/mm3 (4.0-10.0)
[2020-09-06 17:50] LABS: CALCIUM 8.6 mg/dL (8.5-10.1)
[2020-09-06 17:51] LABS: ALBUMIN 3.2 g/dl (3.4-5.0); BLOOD UREA NITROGEN 13.8 mg/dL (7-18)
[2020-09-06 17:54] LABS: CREATININE 0.8 mg/dL (0.55-1.3)
[2020-09-06 17:55] LABS: BILIRUBIN,TOTAL 0.3 mg/dL (0.2-1); TOT PROT 7.9 g/dl (6.4-8.2)
[2020-09-06] MEDS ORDERED: DALBAVANCIN HCL 1,500 MG in DEXTROSE 5%-WATER - 500 ML IVPB ONE (17:55)
== END 2020-09-06 20:00 | disposition home or self-care (01) ==
LOC: JER 15:11
DX: L03.115 Cellulitis of right lower limb (principal)
CPT/HCPCS: 36415; 80053; 83605; 85025; 85610; 87040; 93005; 93010; 99284-25; C9803; J0875; U0003; U0005

== ENCOUNTER 2020-09-29 16:21 | Inpatient (IN) | payer OTHER ==
[2020-09-29 18:59] LABS: BASO % 1.3 % (0-2.0); EOS % 4.5 % (0-4.5); HEMATOCRIT 37.5 % (35.4-49); HEMOGLOBIN 12.7 GM/dL (11.7-16.9); LYMPH % 32.3 % (8-40); MCH 29.9 pg (25.7-33.7); MCHC 33.8 g/dl (32.0-35.9); MEAN CELL VOLUME 88.5 fl (80-96); MONO % 10.6 % (3.8-10.2); NEUT % 51.3 % (42.8-82.8); PLATELET COUNT 180 10^3/uL (134-434); RBC 4.24 M/mm3 (4.00-5.60); RDW 15.4 % (11.9-15.9); WHITE BLOOD COUNT 6.2 K/mm3 (4.0-10.0)
[2020-09-29] MEDS ORDERED: AZTREONAM 1 GM VIAL (RESTRICTED TO ID) IVPB ONE (19:04)
[2020-09-29] MEDS ORDERED: VANCOMYCIN 1 GM in D5W (PRE-DOCKED) 1,000 MG/250 ML IVPB ONE (19:04)
[2020-09-29 19:17] LABS: CALCIUM 8.3 mg/dL (8.5-10.1)
[2020-09-29 19:21] LABS: CREATININE 0.8 mg/dL (0.55-1.3)
[2020-09-29 19:23] LABS: BILIRUBIN,TOTAL 0.3 mg/dL (0.2-1); TOT PROT 7.3 g/dl (6.4-8.2)
[2020-09-29] MEDS ORDERED: VANCOMYCIN 1 GRAM (PRE-DOCKED) 1,000 MG/250 ML BAG IVPB ONE (19:33)
[2020-09-29] MEDS ORDERED: AZTREONAM 2 GM in DEXTROSE 5%-WATER 100 ML IVPB ONE (19:45)
[2020-09-29] MEDS ORDERED: AZTREONAM 2 GM in DEXTROSE 5%-WATER - 100 ML IVPB ONE (19:45)
[2020-09-29] MEDS ORDERED: morphine CARPU-JECT 4 MG/1 ML DISP.SYRIN IVPUSH ONE (20:42)
[2020-09-29] MEDS ORDERED: morphine SULFATE 4 MG/ML VIAL ONE (20:53)
[2020-09-29 22:35] LABS: PH,URINE 6.5 (5.0-8.0); URINE APPEARANCE CLEAR; URINE BILIRUBIN NEGATIVE (NEGATIVE); URINE COLOR YELLOW; URINE GLUCOSE (UA) NEGATIVE (NEGATIVE); URINE KETONE NEGATIVE (NEGATIVE); URINE LEUK ESTERASE NEGATIVE (NEGATIVE); URINE NITRITE NEGATIVE (NEGATIVE); URINE PROTEIN NEGATIVE (NEGATIVE); URINE UROBILINOGEN 0.2 mg/dL (0.2-1.0)
[2020-09-30 03:55] VITALS: BMI 25.4
[2020-09-30] MEDS ORDERED: INSULIN SLIDING SCALE (NOVOLOG) 1 VIAL SQ SCH (07:00)
[2020-09-30] MEDS ORDERED: ALBUTEROL SO4 HFA INHALER IH PRN (08:42)
[2020-09-30 09:44] LABS: BASO % 0.9 % (0-2.0); EOS % 4.5 % (0-4.5); HEMATOCRIT 38.8 % (35.4-49); HEMOGLOBIN 13.4 GM/dL (11.7-16.9); LYMPH % 29.8 % (8-40); MCH 30.6 pg (25.7-33.7); MCHC 34.6 g/dl (32.0-35.9); MEAN CELL VOLUME 88.4 fl (80-96); MEAN PLT VOLUME 7.9 fl (7.5-11.1); MONO % 8.8 % (3.8-10.2); PLATELET COUNT 190 10^3/uL (134-434); RBC 4.39 M/mm3 (4.00-5.60); RDW 15.4 % (11.9-15.9); WHITE BLOOD COUNT 6.2 K/mm3 (4.0-10.0)
[2020-09-30] MEDS ORDERED: POTASSIUM CHLORIDE TABS 10 MEQ TABLET.ER (FP) PO SCH (10:00)
[2020-09-30] MEDS ORDERED: PANTOPRAZOLE 20 MG TABLET PO SCH (10:00)
[2020-09-30] MEDS ORDERED: FUROSEMIDE 40 MG TABLET (FP) PO SCH (10:00)
[2020-09-30] MEDS ORDERED: LISINOPRIL 20 MG TABLET PO SCH (10:00)
[2020-09-30] MEDS ORDERED: APIXABAN 5 MG TABLET PO SCH (10:00)
[2020-09-30] MEDS ORDERED: amLODIPine BESYLATE 10 MG TABLET (FP) PO SCH (10:00)
[2020-09-30] MEDS: amLODIPine BESYLATE 5 MG TABLET (FP) PO SCH (10:05)
[2020-09-30] MEDS: ASPIRIN 81 MG CHEWABLE TABLETS PO SCH (10:05)
[2020-09-30 10:17] LABS: CALCIUM 8.4 mg/dL (8.5-10.1)
[2020-09-30 10:18] LABS: BLOOD UREA NITROGEN 15.2 mg/dL (7-18)
[2020-09-30 10:21] LABS: BILIRUBIN,TOTAL 0.3 mg/dL (0.2-1); CREATININE 0.8 mg/dL (0.55-1.3); TOT PROT 7.4 g/dl (6.4-8.2)
[2020-09-30] MEDS: RAMIPRIL 2.5 MG CAPSULE PO SCH (11:41)
[2020-09-30] MEDS: INSULIN SLIDING SCALE (NOVOLOG) 1 VIAL SQ SCH ×3 (12:33→23:27)
[2020-09-30] MEDS ORDERED: methaDONE HCL 40 MG DISPERSABLE TABLET PO SCH (14:15)
[2020-09-30] MEDS ORDERED: methaDONE HCL 40 MG DISPERSABLE TABLET ONE (14:21)
[2020-09-30] MEDS ORDERED: methaDONE HCL 10 MG TABLET ONE (14:21)
[2020-09-30] MEDS: methaDONE 40 MG, methaDONE 30 MG PO SCH (14:22)
[2020-09-30] MEDS ORDERED: AZTREONAM 1 GM VIAL (RESTRICTED TO ID) IVPB ONE (17:53)
[2020-09-30] MEDS ORDERED: ACETAMINOPHEN 1000 MG/100 ML VIAL (NON FORMULARY) IVPB ONE (17:53)
[2020-09-30] MEDS ORDERED: AZTREONAM 2 GM in DEXTROSE 5%-WATER 100 ML IVPB ONE (18:30)
[2020-09-30] MEDS ORDERED: MONTELUKAST NA 10 MG TABLET PO SCH (22:00)
[2020-09-30] MEDS: HEPARIN NA (PORCINE) 5,000 UNITS/ML 1ML VIAL SQ SCH (23:28)
[2020-10-01] MEDS ORDERED: methaDONE HCL 40 MG DISPERSABLE TABLET ONE (05:45)
[2020-10-01] MEDS ORDERED: methaDONE HCL 10 MG TABLET ONE (05:45)
[2020-10-01] MEDS: methaDONE 40 MG, methaDONE 30 MG PO SCH (06:07)
[2020-10-01] MEDS: INSULIN (LEVEMIR) 100 UNITS/ML UNITS SQ SCH (06:08)
[2020-10-01] MEDS: HEPARIN NA (PORCINE) 5,000 UNITS/ML 1ML VIAL SQ SCH ×3 (06:09→22:36)
[2020-10-01] MEDS: INSULIN SLIDING SCALE (NOVOLOG) 1 VIAL SQ SCH ×4 (06:19→22:38)
[2020-10-01] MEDS ORDERED: traMADol HCL 50 MG TABLET PO PRN ×2 (09:24→10:08)
[2020-10-01] MEDS ORDERED: PT OWN MED DRAWER 7, Y5N ONE (10:07)
[2020-10-01] MEDS: ASPIRIN 81 MG CHEWABLE TABLETS PO SCH (10:28)
[2020-10-01] MEDS: amLODIPine BESYLATE 5 MG TABLET (FP) PO SCH (10:28)
[2020-10-01] MEDS: RAMIPRIL 2.5 MG CAPSULE PO SCH (10:29)
[2020-10-01] MEDS ORDERED: INSULIN (LEVEMIR) 100 UNITS/ML UNITS SQ SCH (22:00)
[2020-10-02] MEDS ORDERED: methaDONE HCL 40 MG DISPERSABLE TABLET ONE (05:44)
[2020-10-02] MEDS ORDERED: methaDONE HCL 10 MG TABLET ONE (05:44)
[2020-10-02] MEDS: methaDONE 40 MG, methaDONE 30 MG PO SCH (06:23)
[2020-10-02] MEDS: HEPARIN NA (PORCINE) 5,000 UNITS/ML 1ML VIAL SQ SCH (06:24)
[2020-10-02] MEDS: INSULIN (LEVEMIR) 100 UNITS/ML UNITS SQ SCH (06:27)
[2020-10-02] MEDS: INSULIN SLIDING SCALE (NOVOLOG) 1 VIAL SQ SCH ×2 (06:28→11:23)
[2020-10-02 09:49] VITALS: BP 120/66; PULSE 82; TEMP 98.7
[2020-10-02] MEDS: amLODIPine BESYLATE 5 MG TABLET (FP) PO SCH (10:37)
[2020-10-02] MEDS: ASPIRIN 81 MG CHEWABLE TABLETS PO SCH (10:37)
[2020-10-02] MEDS: RAMIPRIL 2.5 MG CAPSULE PO SCH (10:37)
== END 2020-10-02 13:17 | disposition home or self-care (01) | DRG 603 ==
LOC: JER 16:21 → JERBED 22:57 → J5S 09-30 01:13
PROVIDERS: ADMIT Family Medicine; ATTEND Family Medicine
DX: L03.116 Cellulitis of left lower limb (principal); F11.20 Opioid dependence, uncomplicated; I11.0 Hypertensive heart disease with heart failure; I50.9 Heart failure, unspecified; E78.5 Hyperlipidemia, unspecified; Z95.1 Presence of aortocoronary bypass graft; J45.909 Unspecified asthma, uncomplicated; Z79.4 Long term (current) use of insulin; I25.10 Atherosclerotic heart disease of native coronary artery without angina pectoris; E11.51 Type 2 diabetes mellitus with diabetic peripheral angiopathy without gangrene; E11.40 Type 2 diabetes mellitus with diabetic neuropathy, unspecified; E11.65 Type 2 diabetes mellitus with hyperglycemia; Z88.0 Allergy status to penicillin
CPT/HCPCS: 36415; 71046-TC-FY; 73610-TC-LT-FY; 73630-TC-LT; 80053; 81003; 82550; 82962; 84484; 85025; 87040; 87086; 93005; 93010; 93971-TC; 99285-25; C9803; J0131; J1644; U0003; U0005

== ENCOUNTER 2024-12-01 17:35 | Inpatient (IN) | payer OTHER ==
[2024-12-01 18:18] VITALS: BMI 22.1
[2024-12-01] MEDS ORDERED: POLYETHYLENE GLYCOL (HEALTHYLAX) 3350 17 GM PACKET PO PRN (18:52)
[2024-12-01] MEDS ORDERED: ONDANSETRON *ODT* 4 MG TABLET SL PRN (18:52)
[2024-12-01] MEDS ORDERED: MAG HYDROX/AL HYDROX/SIMETH 30 ML UNIT-DOSE CUP PO PRN (18:52)
[2024-12-01] MEDS ORDERED: guaiFENesin 600 MG TABLET.ER (FP) PO PRN (18:52)
[2024-12-01] MEDS ORDERED: NALOXONE (NARCAN) HCL 4 MG/0.1 ML SPRAY NS PRN (18:52)
[2024-12-01] MEDS ORDERED: BENZOCAINE/MENTHOL (CHLORASEPTIC ) LOZENGE MM PRN (18:52)
[2024-12-01] MEDS ORDERED: BISMUTH SUBSALICYLATE 524 MG/30 ML PO PRN (18:52)
[2024-12-01] MEDS ORDERED: BENZONATATE 200 MG CAPSULE PO PRN (18:52)
[2024-12-01] MEDS ORDERED: MAGNESIUM HYDROX 2400MG/30ML ORAL SUSPENSION 30 ML CUP PO PRN (18:52)
[2024-12-01] MEDS ORDERED: LOPERAMIDE HCL 2 MG CAPSULE PO PRN (18:52)
[2024-12-01] MEDS ORDERED: IBUPROFEN 400 MG TABLET (FP) PO PRN (18:52)
[2024-12-01] MEDS ORDERED: P-EPHED 60MG/TRIPROLIDI 2.5MG TABLET PO PRN (18:52)
[2024-12-01] MEDS: INSULIN ASPART SLIDING SCALE (NOVOLOG) 1 VIAL SQ SCH (19:15)
[2024-12-01] MEDS ORDERED: INSULIN (NOVOLOG) ASPART 100 UNITS/ML 10ML VIAL SQ ONE (22:13)
[2024-12-01] MEDS: MELATONIN 5 MG TABLETS PO SCH (22:59)
[2024-12-01] MEDS: THIAMINE 100 MG TABLET PO SCH (22:59)
[2024-12-01] MEDS: BACITRACIN 0.9 GM PACKET TP SCH (23:06)
[2024-12-02] MEDS: IBUPROFEN 600 MG TABLET (FP) PO PRN (01:43)
[2024-12-02] MEDS: ACETAMINOPHEN 325 MG TABLET (FP) PO PRN (05:45)
[2024-12-02] MEDS: PRENATAL VITAMINS W/ FOLIC ACID TABLET (FP) PO SCH (10:19)
[2024-12-02] MEDS ORDERED: INSULIN ASPART SLIDING SCALE (NOVOLOG) 1 VIAL SQ ONE (12:17)
[2024-12-02] MEDS ORDERED: ALBUTEROL SO4 HFA INHALER IH PRN (13:13)
[2024-12-02] MEDS: metFORMIN HCL 500 MG TABLET (FP) PO SCH (17:42)
[2024-12-02] MEDS: INSULIN ASPART SLIDING SCALE (NOVOLOG) 1 VIAL SQ SCH (17:43)
[2024-12-02] MEDS: INSULIN GLARGINE (LANTUS) 100 UNITS/ML UNITS SQ SCH (22:36)
[2024-12-02] MEDS: CARVEDILOL 3.125 MG TABLET (FP) PO SCH (22:36)
[2024-12-02] MEDS: ATORVASTATIN CA 40 MG TABLET (FP) PO SCH (22:36)
[2024-12-03] MEDS: ASPIRIN COATED 81 MG TABLET.EC PO SCH (10:10)
[2024-12-03] MEDS: amLODIPine BESYLATE 5 MG TABLET (FP) PO SCH (10:11)
[2024-12-03] MEDS: RAMIPRIL 2.5 MG CAPSULE PO SCH (10:16)
[2024-12-05 08:58] VITALS: RESP 14
[2024-12-05 12:35] VITALS: BP 150/83; PULSE 75; TEMP 97.3
== END 2024-12-05 15:15 | disposition other institution (70) | DRG 897 ==
LOC: YASAS 17:35 → Y3N 22:00
PROVIDERS: ADMIT Neuromusculoskeletal Medicine & OMM; ATTEND Family Medicine
PROC: HZ2ZZZZ Detoxification Services for Substance Abuse Treatment (ICD-10-PCS; principal; 2024-12-01)
DX: F11.23 Opioid dependence with withdrawal (principal); F14.23 Cocaine dependence with withdrawal; I10 Essential (primary) hypertension; I25.10 Atherosclerotic heart disease of native coronary artery without angina pectoris; E11.9 Type 2 diabetes mellitus without complications; J45.30 Mild persistent asthma, uncomplicated; E11.610 Type 2 diabetes mellitus with diabetic neuropathic arthropathy; J44.9 Chronic obstructive pulmonary disease, unspecified; I11.0 Hypertensive heart disease with heart failure; I50.9 Heart failure, unspecified; F41.9 Anxiety disorder, unspecified; G47.00 Insomnia, unspecified; F39 Unspecified mood [affective] disorder; Z95.1 Presence of aortocoronary bypass graft
CPT/HCPCS: 71045-TC-FY; 73562-TC-LT-FY; 80305; 82962; 87811; 93005; 93010